=== PATIENT | female | born 1965 | race Caucasian/White ===

== ENCOUNTER → 2017-01-11 | Outpatient (CLI) | payer BC | LOC: MW.CHFP 11:54 | PROVIDERS: ATTEND Physician Assistant | DX: J44.9 Chronic obstructive pulmonary disease, unspecified (principal) | CPT/HCPCS: 36415; 82103; 82104 ==

== ENCOUNTER 2017-04-01 11:13 | Emergency (ER) | payer BC ==
--- NOTE | 2017-04-01 11:35 | EDM.PDOC ---
ED HPI GENERAL MEDICAL PROBLEM - General Chief Complaint: ENT Problem Stated Complaint: SICK Time Seen by Provider: 04/01/17 11:15 - History of Present Illness INITIAL COMMENTS - FREE TEXT/NARRATIVE: HISTORY AND PHYSICAL: History of present illness: Patient 32-year-old white female presents with sore throat she denies fever chills nausea or other complaints. Review of systems: As per history of present illness and below otherwise all systems reviewed and negative. Past medical history: As per history of present illness and as reviewed below otherwise noncontributory. Surgical history: As per history of present illness and as reviewed below otherwise noncontributory. Social history: No reported history of drug or alcohol abuse. Family history: As per history of present illness and as reviewed below otherwise noncontributory. Physical exam: HEENT: Atraumatic, normocephalic, pupils reactive, negative for conjunctival pallor or scleral icterus, mucous membranes moist, throat injected no pustular exudates no peritonsillar fullness ovular deviation no hot potato voice no trismus, neck supple, nontender, trachea midline. Lungs: Clear to auscultation, breath sounds equal bilaterally, chest nontender. Heart: S1S2, regular, negative for clicks, rubs, or JVD. Abdomen: Soft, nondistended, nontender. Negative for masses or hepatosplenomegaly. Negative for costovertebral tenderness. Pelvis: Stable nontender. Genitourinary: Deferred. Rectal: Deferred. Extremities: Atraumatic, negative for cords or calf pain. Neurovascular unremarkable. Neuro: Awake, alert, oriented. Cranial nerves II through XII unremarkable. Cerebellum unremarkable. Motor and sensory unremarkable throughout. Exam nonfocal. Diagnostics: Rapid strep Therapeutics: None Impression: #1 pharyngitis Definitive disposition and diagnosis as appropriate pending reevaluation and review of above. - Related Data Allergies Allergy/AdvReac Type Severity Reaction Status Date / Time aspirin Allergy Nausea and Verified 05/06/16 18:08 Vomiting Influenza Virus Vaccines Allergy Other Verified 05/06/16 18:08 Penicillins Allergy Hives Verified 05/06/16 18:08 shellfish derived Allergy Shortness Verified 05/06/16 18:08 of Breath Home Meds: Home Meds Albuterol [Ventolin HFA] 1 inh INH ASDIRECTED 05/06/16 [History] Cyclobenzaprine [Flexeril] 1 tab PO TID PRN #20 tablet 05/06/16 [Rx] Diazepam [Valium] 1 tab PO BEDTIME PRN #4 tablet 05/06/16 [Rx] Diclofenac Sodium [Voltaren] 1 tab PO TIDMEALS PRN #20 tab.ec 05/06/16 [Rx] Metoprolol Tartrate 50 mg PO ASDIRECTED 05/06/16 [History] Ranitidine HCl [Ranitidine] 150 mg PO ASDIRECTED 05/06/16 [History] Past Medical History HEENT History: Reports: None Cardiovascular History: Reports: Hypertension Respiratory History: Reports: Asthma Gastrointestinal History: Reports: GERD Neurological History: Reports: None Hematologic History: Reports: None Immunologic History: Reports: None Oncologic (Cancer) History: Reports: None Dermatologic History: Reports: None - Past Surgical History HEENT Surgical History: Reports: Other (See Below) Female Surgical History: Reports: Section Social & Family History - Family History Family Medical History: Noncontributory GI: Reports: None : Reports: None OBGYN: Reports: None Musculoskeletal: Reports: None Psychiatric: Reports: None - Tobacco Use Smoking Status *Q: Never Smoker - Recreational Drug Use Recreational Drug Use: No ED ROS GENERAL - Review of Systems Review Of Systems: ROS reveals no pertinent complaints other than HPI. ED EXAM, GENERAL - Physical Exam Exam: See Below (See dictation) Course - Orders/Labs/Meds Orders: Active Orders 24 hr Category Date Time Status CULTURE STREP A CONFIRMATION [RM] Stat Lab 04/01/17 11:19 Results STREP SCRN A RAPID W CULT CONF [RM] Stat Lab 04/01/17 11:19 Results Departure - Departure Time of Disposition: 11:34 Disposition: Home, Self-Care 01 Condition: good Clinical Impression: Pharyngitis - Discharge Information Forms: ED Department Discharge Additional Instructions: The following information is given to patients seen in the emergency department who are being discharged to home. This information is to outline your options for follow-up care. We provide all patients seen in our emergency department with a follow-up referral. The need for follow-up, as well as the timing and circumstances, are variable depending upon the specifics of your emergency department visit. If you don't have a primary care physician on staff, we will provide you with a referral. We always advise you to contact your personal physician following an emergency department visit to inform them of the circumstance of the visit and for follow-up with them and/or the need for any referrals to a consulting specialist. The emergency department will also refer you to a specialist when appropriate. This referral assures that you have the opportunity for followup care with a specialist. All of these measure are taken in an effort to provide you with optimal care, which includes your followup. Under all circumstances we always encourage you to contact your private physician who remains a resource for coordinating your care. When calling for followup care, please make the office aware that this follow-up is from your recent emergency room visit. If for any reason you are refused follow-up, please contact the [facility] emergency department at and asked to speak to the emergency department charge nurse. Continue current medications follow up primary medical doctor one to 2 days return as needed as discussed - My Orders Last 24 Hours: My Active Orders 04/01/17 11:19 CULTURE STREP A CONFIRMATION [RM] Stat STREP SCRN A RAPID W CULT CONF [RM] Stat - Assessment/Plan Last 24 Hours: My Active Orders 04/01/17 11:19 CULTURE STREP A CONFIRMATION [RM] Stat STREP SCRN A RAPID W CULT CONF [RM] Stat
[2017-04-01] MEDS ORDERED: Lidocaine 2% Viscous Solution 100 ML Bottle PO ONE (11:44)
[2017-04-01] MEDS ORDERED: Nystatin Susp 100,000 Unit/ML 5 ML UD Cup PO ONE (11:47)
[2017-04-01] MEDS ORDERED: diphenhydrAMINE 12.5 MG/5 ML Liquid ML (473 ML Bottle) PO ONE (11:47)
[2017-04-01] MEDS ORDERED: NYSTATIN PO SCH ×3 (12:00)
[2017-04-01] MEDS ORDERED: LIDOCAINE 2% PO SCH ×3 (12:00)
[2017-04-01] MEDS ORDERED: DIPHENHYDRAMINE PO SCH ×3 (12:00)
[2017-04-01 12:32] VITALS: BP 156/87
== END 2017-04-01 11:58 | disposition home or self-care (01) ==
LOC: MW.ED 11:13
DX: J02.9 Acute pharyngitis, unspecified (principal); I10 Essential (primary) hypertension; J45.909 Unspecified asthma, uncomplicated; K21.9 Gastro-esophageal reflux disease without esophagitis; Z88.0 Allergy status to penicillin; Z88.8 Allergy status to other drugs, medicaments and biological substances; Z91.013 Allergy to seafood; Z79.899 Other long term (current) drug therapy
CPT/HCPCS: 87081; 87880; 99283; A9270; 99282

== ENCOUNTER 2019-09-12 16:08 | Emergency (ER) | payer BC ==
--- NOTE | 2019-09-12 16:55 | EDM.PDOC ---
ED HPI GENERAL MEDICAL PROBLEM - General Chief Complaint: Respiratory Problem Stated Complaint: PAT LAST VOICE Time Seen by Provider: 09/12/19 16:13 Source of Information: Reports: Patient History Limitations: Reports: No Limitations - History of Present Illness INITIAL COMMENTS - FREE TEXT/NARRATIVE: History of present illness: []Patient has been coughing for 2 weeks and having fevers for the last 6 days. She has lost her voice and states she has chest tightness when she breathes. He shouldn't has a history of asthma and has been using an albuterol inhaler without improvement. Review of systems: As per history of present illness and below otherwise all systems reviewed and negative. Past medical history: As per history of present illness and as reviewed below otherwise noncontributory. Surgical history: As per history of present illness and as reviewed below otherwise noncontributory. Social history: No reported history of drug or alcohol abuse. Family history: As per history of present illness and as reviewed below otherwise noncontributory. Physical exam: General: Well developed, well nourished in NAD HEENT: Atraumatic, normocephalic, pupils reactive, negative for conjunctival pallor or scleral icterus, mucous membranes moist, throat clear, neck supple, nontender, trachea midline. Lungs: Clear to auscultation, breath sounds equal bilaterally, chest nontender. Heart: S1S2, regular, negative for clicks, rubs, or JVD. Abdomen: NABS, Soft, nondistended, nontender. Negative for masses or hepatosplenomegaly. Negative for costovertebral tenderness. Pelvis: Stable nontender. Genitourinary: Deferred. Rectal: Deferred. Extremities: Atraumatic, negative for cords or calf pain. Neurovascular unremarkable. Neuro: Awake, alert, oriented. Cranial nerves II through XII unremarkable. Cerebellum unremarkable. Motor and sensory unremarkable throughout. Exam nonfocal. Skin:warm and dry Diagnostics: Chest x-ray, afebrile, vital signs stable Therapeutics: DuoNeb and prednisone ED Course: Stable Impression: Acute bronchitis Prescriptions: Levaquin, prednisone, albuterol solution Plan: Take meds as directed, follow up with your primary care physician, return to ER if symptoms worsen or change. Definitive disposition and diagnosis as appropriate pending reevaluation and review of above. Chest Pain Score (Numeric/FACES): 6 - Related Data Allergies Allergy/AdvReac Type Severity Reaction Status Date / Time aspirin Allergy Nausea and Verified 04/01/17 12:48 Vomiting caffeine Allergy Cannot Verified 04/01/17 12:48 Remember erythromycin base Allergy Cannot Verified 04/01/17 12:48 Remember Influenza Virus Vaccines Allergy Other Verified 04/01/17 12:48 morphine Allergy Cannot Verified 04/01/17 12:48 Remember oxycodone Allergy Cannot Verified 04/01/17 12:48 Remember Penicillins Allergy Hives Verified 04/01/17 12:48 propoxyphene Allergy Cannot Verified 04/01/17 12:48 Remember shellfish derived Allergy Shortness Verified 04/01/17 12:48 of Breath Home Meds: Home Meds Albuterol [Ventolin HFA] 1 inh INH ASDIRECTED 05/06/16 [History] Cyclobenzaprine [Flexeril] 1 tab PO TID PRN #20 tablet 05/06/16 [Rx] Metoprolol Tartrate 50 mg PO ASDIRECTED 05/06/16 [History] Ranitidine HCl [Ranitidine] 300 mg PO ASDIRECTED 05/06/16 [History] Albuterol [Proventil Neb Soln] 2.5 mg NEB Q4HR PRN #15 neb 09/12/19 [Rx] Calcium Carbonate/Vitamin D3 [Calcium 1,000 + D3 Caplet] 1,000 mcg PO DAILY 06/23 [History] Diclofenac Sodium [Voltaren] 100 mg PO DAILY PRN 09/12/19 [History] Escitalopram [Lexapro] 10 mg PO DAILY 09/12/19 [History] Letrozole 2.5 mg PO DAILY 09/12/19 [History] Magnesium 1,000 mg PO DAILY 09/12/19 [History] Montelukast [Singulair] 10 mg PO DAILY 09/12/19 [History] atorvaSTATin [Lipitor] 10 mg PO BEDTIME 09/12/19 [History] levoFLOXacin [Levaquin] 500 mg PO DAILY #14 tab 09/12/19 [Rx] predniSONE [Prednisone] 20 mg PO DAILY #5 tablet 09/12/19 [Rx] Past Medical History HEENT History: Reports: None Cardiovascular History: Reports: Hypertension Respiratory History: Reports: Asthma Gastrointestinal History: Reports: GERD Neurological History: Reports: None Hematologic History: Reports: None Immunologic History: Reports: None Oncologic (Cancer) History: Reports: None Dermatologic History: Reports: None - Infectious Disease History Infectious Disease History: Reports: Chicken Pox - Past Surgical History HEENT Surgical History: Reports: Other (See Below) Female Surgical History: Reports: Section Social & Family History - Family History Family Medical History: Noncontributory GI: Reports: None : Reports: None OBGYN: Reports: None Musculoskeletal: Reports: None Psychiatric: Reports: None - Caffeine Use Caffeine Use: Reports: None ED ROS GENERAL - Review of Systems Review Of Systems: See Below ED EXAM, GENERAL - Physical Exam Exam: See Below Course - Vital Signs Last Recorded V/S: Last Vital Signs Temp 97.0 F 09/12/19 16:44 Pulse 58 L 09/12/19 16:44 Resp 20 09/12/19 16:44 BP 126/60 09/12/19 16:44 Pulse Ox 95 09/12/19 16:44 - Orders/Labs/Meds Orders: Active Orders 24 hr Category Date Time Status RT Aerosol Therapy [RC] ASDIRECTED Care 09/12/19 16:58 Active Meds: Medications Discontinued Medications Generic Name Dose Route Start Last Admin Trade Name Freq PRN Reason Stop Dose Admin Albuterol/Ipratropium 3 ml 09/12/19 16:58 09/12/19 17:04 Duoneb 3.0-0.5 Mg/3 Ml NEB 09/12/19 16:59 3 ml ONETIME ONE Administration Prednisone 60 mg 09/12/19 16:59 09/12/19 17:10 Prednisone PO 09/12/19 17:00 60 mg ONETIME ONE Administration Departure - Departure Time of Disposition: 17:51 Disposition: Home, Self-Care 01 Condition: Good Clinical Impression: Acute bronchitis Qualifiers: Bronchitis organism: unspecified organism Qualified Code(s): J20.9 - Acute bronchitis, unspecified - Discharge Information *PRESCRIPTION DRUG MONITORING PROGRAM REVIEWED*: Not Applicable *COPY OF PRESCRIPTION DRUG MONITORING REPORT IN PATIENT CANDE: Not Applicable Prescriptions: Albuterol [Proventil Neb Soln] 2.5 mg NEB Q4HR PRN #15 neb PRN Reason: Cough levoFLOXacin [Levaquin] 500 mg PO DAILY #14 tab predniSONE [Prednisone] 20 mg PO DAILY #5 tablet Referrals: PCP,Not In Area [Primary Care Provider] - Forms: ED Department Discharge Additional Instructions: The following information is given to patients seen in the emergency department who are being discharged to home. This information is to outline your options for follow-up care. We provide all patients seen in our emergency department with a follow-up referral. The need for follow-up, as well as the timing and circumstances, are variable depending upon the specifics of your emergency department visit. If you don't have a primary care physician on staff, we will provide you with a referral. We always advise you to contact your personal physician following an emergency department visit to inform them of the circumstance of the visit and for follow-up with them and/or the need for any referrals to a consulting specialist. The emergency department will also refer you to a specialist when appropriate. This referral assures that you have the opportunity for follow-up care with a specialist. All of these measure are taken in an effort to provide you with optimal care, which includes your follow-up. Under all circumstances we always encourage you to contact your private physician who remains a resource for coordinating your care. When calling for follow-up care, please make the office aware that this follow-up is from your recent emergency room visit. If for any reason you are refused follow-up, please contact the [facility] Emergency Department at and asked to speak to the emergency department charge nurse. Take meds as directed, follow up with your primary care physician, return to ER if symptoms worsen or change. [facility] [address] [place] [id number] - My Orders Last 24 Hours: My Active Orders 09/12/19 16:58 RT Aerosol Therapy [RC] ASDIRECTED - Assessment/Plan Last 24 Hours: My Active Orders 09/12/19 16:58 RT Aerosol Therapy [RC] ASDIRECTED
[2019-09-12] MEDS ORDERED: Albuterol/Ipratropium 3.0-0.5 MG/3 ML Neb Soln NEB ONE (16:58)
[2019-09-12] MEDS ORDERED: predniSONE 20 MG Tab PO ONE (16:59)
--- NOTE | 2019-09-12 17:39 | CR ---
INDICATION: pain/sob. with cold for 2 weeks. lost voice and chest tightness since sunday TECHNIQUE: Chest 2 views. COMPARISON: 11/24/16 FINDINGS: Cardiovascular and mediastinum: Heart size and vasculature are normal in caliber and appearance. Mediastinum is within normal limits. Lungs and pleural spaces: Lungs are clear. No sign of infiltrate or mass. No sign of pleural effusion. No pneumothorax. Bones and soft tissues: No significant findings. IMPRESSION: Unremarkable chest. Dictated by: Geo Morales MD @ 09/12/2019 17:38:37 (Electronically Signed)
[2019-09-12 18:06] VITALS: BP 132/67; PULSE 62
== END 2019-09-12 18:07 | disposition home or self-care (01) ==
LOC: MW.ED 16:08
DX: J20.9 Acute bronchitis, unspecified (principal); I10 Essential (primary) hypertension; J45.909 Unspecified asthma, uncomplicated; Z79.52 Long term (current) use of systemic steroids; Z79.899 Other long term (current) drug therapy; Z88.0 Allergy status to penicillin; Z88.1 Allergy status to other antibiotic agents; Z88.5 Allergy status to narcotic agent; Z88.6 Allergy status to analgesic agent; Z88.7 Allergy status to serum and vaccine; Z91.018 Allergy to other foods; Z91.013 Allergy to seafood
CPT/HCPCS: 71046; 94640; 99283; A9270; J7620-GY

== ENCOUNTER 2019-11-15 12:20 | Emergency (ER) | payer BC ==
--- NOTE | 2019-11-15 13:11 | EDM.PDOC ---
ED HPI GENERAL MEDICAL PROBLEM - General Chief Complaint: Respiratory Problem Stated Complaint: TROUBLE BREATHING Time Seen by Provider: 11/15/19 13:10 Source of Information: Reports: Patient History Limitations: Reports: No Limitations - History of Present Illness INITIAL COMMENTS - FREE TEXT/NARRATIVE: HISTORY AND PHYSICAL: History of present illness: Patient is a 54-year-old female presents to the ED with complaint of cough and shortness of breath x 1 week. Patient reports history of asthma, has been using inhalers and nebulizer to help with SOB. She states when she lies down she has coughing fits. She is starting to have a burning sensation in her chest secondary to the cough. She reports subjective fevers. Denies nausea, vomiting, abdominal pain. Review of systems: As per history of present illness and below otherwise all systems reviewed and negative. Past medical history: As per history of present illness and as reviewed below otherwise noncontributory. Surgical history: As per history of present illness and as reviewed below otherwise noncontributory. Social history: No reported history of drug or alcohol abuse. Family history: As per history of present illness and as reviewed below otherwise noncontributory. Physical exam: General: Patient sitting comfortably in no acute distress and nontoxic appearing HEENT: Atraumatic, normocephalic, pupils reactive, negative for conjunctival pallor or scleral icterus, mucous membranes moist, throat clear, neck supple, nontender, trachea midline. No meningeal signs. Lungs: Clear to auscultation, breath sounds equal bilaterally, chest nontender. Heart: S1S2, regular, negative for clicks, rubs, or overt murmur. Abdomen: Soft, nondistended, nontender. Negative for masses or hepatosplenomegaly. Negative for costovertebral tenderness. No rigidity, rebound , guarding. Pelvis: Stable nontender. Genitourinary: Deferred. Rectal: Deferred. Extremities: Atraumatic, negative for cords or calf pain. Neurovascular unremarkable. Neuro: Awake, alert, oriented. Cranial nerves II through XII unremarkable. Cerebellum unremarkable. Motor and sensory unremarkable throughout. Exam nonfocal. Notes: Diagnostics: CXR, CBC, CMP declined influenza Therapeutics: none Prescriptions: Azithromycin Medrol dosepak Impression: Acute bronchitis Plan: Take medications as instructed Continue inhaler and nebulizer as needed Follow up with primary care provider Return to ED as needed as discussed Definitive disposition and diagnosis as appropriate pending reevaluation and review of above. generalized Pain Score (Numeric/FACES): 7 - Related Data Allergies Allergy/AdvReac Type Severity Reaction Status Date / Time aspirin Allergy Nausea and Verified 11/15/19 12:34 Vomiting caffeine Allergy Cannot Verified 11/15/19 12:34 Remember erythromycin base Allergy Cannot Verified 11/15/19 12:34 Remember Influenza Virus Vaccines Allergy Other Verified 11/15/19 12:34 Latex, Natural Rubber Allergy Other Verified 11/15/19 12:34 morphine Allergy Cannot Verified 11/15/19 12:34 Remember oxycodone Allergy Cannot Verified 11/15/19 12:34 Remember Penicillins Allergy Hives Verified 11/15/19 12:34 propoxyphene Allergy Cannot Verified 11/15/19 12:34 Remember shellfish derived Allergy Shortness Verified 11/15/19 12:34 of Breath Home Meds: Home Meds Albuterol [Ventolin HFA] 1 inh INH ASDIRECTED 05/06/16 [History] Metoprolol Tartrate 50 mg PO ASDIRECTED 05/06/16 [History] Ranitidine HCl [Ranitidine] 300 mg PO ASDIRECTED 05/06/16 [History] Albuterol [Proventil Neb Soln] 2.5 mg NEB Q4HR PRN #15 neb 09/12/19 [Rx] Calcium Carbonate/Vitamin D3 [Calcium 1,000 + D3 Caplet] 1,000 mcg PO DAILY 06/23 [History] Diclofenac Sodium [Voltaren] 100 mg PO DAILY PRN 09/12/19 [History] Escitalopram [Lexapro] 10 mg PO DAILY 09/12/19 [History] Letrozole 2.5 mg PO DAILY 09/12/19 [History] Magnesium 1,000 mg PO DAILY 09/12/19 [History] Montelukast [Singulair] 10 mg PO DAILY 09/12/19 [History] atorvaSTATin [Lipitor] 10 mg PO BEDTIME 09/12/19 [History] Azithromycin [Zithromax] 250 mg PO ASDIRECTED #1 dosepk 11/15/19 [Rx] Fluticasone Furoate [Arnuity Ellipta] 2 puff IH ASDIRECTED 11/15/19 [History] methylPREDNISolone [Medrol] 4 mg PO ASDIRECTED #1 tab.ds.pk 11/15/19 [Rx] Past Medical History HEENT History: Reports: None Cardiovascular History: Reports: High Cholesterol, Hypertension Respiratory History: Reports: Asthma Gastrointestinal History: Reports: GERD Neurological History: Reports: None Hematologic History: Reports: None Immunologic History: Reports: None Oncologic (Cancer) History: Reports: None Dermatologic History: Reports: None - Infectious Disease History Infectious Disease History: Reports: Chicken Pox - Past Surgical History HEENT Surgical History: Reports: Other (See Below) Female Surgical History: Reports: Breast Biopsy, Section, Hysterectomy, Salpingo-Oophorectomy Oncologic Surgical History: Reports: Biopsy of Breast, Lumpectomy Social & Family History - Family History Family Medical History: Noncontributory GI: Reports: None : Reports: None OBGYN: Reports: None Musculoskeletal: Reports: None Psychiatric: Reports: None - Tobacco Use Smoking Status *Q: Never Smoker - Caffeine Use Caffeine Use: Reports: None - Recreational Drug Use Recreational Drug Use: No ED ROS GENERAL - Review of Systems Review Of Systems: Comprehensive ROS is negative, except as noted in HPI. ED EXAM, GENERAL - Physical Exam Exam: See Below (see dictation) Course - Vital Signs Last Recorded V/S: Last Vital Signs Temp 97.1 F 11/15/19 12:31 Pulse 75 11/15/19 12:31 Resp 18 11/15/19 12:31 BP 150/73 H 11/15/19 12:31 Pulse Ox 94 L 11/15/19 12:31 - Orders/Labs/Meds Labs: Laboratory Tests 11/15/19 11/15/19 Range/Units 12:50 12:50 WBC 10.70 (4.0-11.0) K/uL RBC 4.24 L (4.30-5.90) M/uL Hgb 12.6 (12.0-16.0) g/dL Hct 37.5 (36.0-46.0) % MCV 88.4 (80.0-98.0) fL MCH 29.7 (27.0-32.0) pg MCHC 33.6 (31.0-37.0) g/dL RDW Std Deviation 38.3 (28.0-62.0) fl RDW Coeff of Vani 12 (11.0-15.0) % Plt Count 285 (150-400) K/uL MPV 10.10 (7.40-12.00) fL Neut % (Auto) 73.0 (48.0-80.0) % Lymph % (Auto) 19.0 (16.0-40.0) % Tama % (Auto) 4.7 (0.0-15.0) % Eos % (Auto) 3.2 (0.0-7.0) % Baso % (Auto) 0.1 (0.0-1.5) % Neut # (Auto) 7.8 H (1.4-5.7) K/uL Lymph # (Auto) 2.0 (0.6-2.4) K/uL Tama # (Auto) 0.5 (0.0-0.8) K/uL Eos # (Auto) 0.3 (0.0-0.7) K/uL Baso # (Auto) 0.0 (0.0-0.1) K/uL Sodium 143 (136-145) mmol/L Potassium 4.1 (3.5-5.1) mmol/L Chloride 103 (98-107) mmol/L Carbon Dioxide 29.0 (21.0-32.0) mmol/L BUN 13 (7.0-18.0) mg/dL Creatinine 1.1 H (0.6-1.0) mg/dL Est Cr Clr Drug Dosing 54.29 mL/min Estimated GFR (MDRD) 52.0 ml/min Glucose 164 H (74-106) mg/dL Calcium 9.4 (8.5-10.1) mg/dL Total Bilirubin 0.2 (0.2-1.0) mg/dL AST 18 (15-37) IU/L ALT 25 (14-63) IU/L Alkaline Phosphatase 148 H (46-116) U/L Total Protein 7.1 (6.4-8.2) g/dL Albumin 3.4 (3.4-5.0) g/dL Globulin 3.7 (2.6-4.0) g/dL Albumin/Globulin Ratio 0.9 (0.9-1.6) Departure - Departure Time of Disposition: 13:27 Disposition: Home, Self-Care 01 Condition: Good Clinical Impression: Acute bronchitis Qualifiers: Bronchitis organism: unspecified organism Qualified Code(s): J20.9 - Acute bronchitis, unspecified - Discharge Information Prescriptions: Azithromycin [Zithromax] 250 mg PO ASDIRECTED #1 dosepk methylPREDNISolone [Medrol] 4 mg PO ASDIRECTED #1 tab.ds.pk Referrals: Ewa Urena NP [Primary Care Provider] - Forms: ED Department Discharge Additional Instructions: The following information is given to patients seen in the emergency department who are being discharged to home. This information is to outline your options for follow-up care. We provide all patients seen in our emergency department with a follow-up referral. The need for follow-up, as well as the timing and circumstances, are variable depending upon the specifics of your emergency department visit. If you don't have a primary care physician on staff, we will provide you with a referral. We always advise you to contact your personal physician following an emergency department visit to inform them of the circumstance of the visit and for follow-up with them and/or the need for any referrals to a consulting specialist. The emergency department will also refer you to a specialist when appropriate. This referral assures that you have the opportunity for follow-up care with a specialist. All of these measure are taken in an effort to provide you with optimal care, which includes your follow-up. Under all circumstances we always encourage you to contact your private physician who remains a resource for coordinating your care. When calling for follow-up care, please make the office aware that this follow-up is from your recent emergency room visit. If for any reason you are refused follow-up, please contact the [facility] Emergency Department at and asked to speak to the emergency department charge nurse. [facility] [address] [place] [address] [id number] [address] [address] Take medications as instructed Continue inhaler and nebulizer as needed Follow up with primary care provider Return to ED as needed as discussed Sepsis Event Note - Evaluation Sepsis Screening Result: No Definite Risk - Focused Exam Vital Signs: Vital Signs Temp Pulse Resp BP Pulse Ox 11/15/19 12:31 97.1 F 75 18 150/73 H 94 L Date Exam was Performed: 11/15/19 Time Exam was Performed: 13:25
--- NOTE | 2019-11-15 13:18 | CR ---
Chest: 2 views of the chest were obtained. Comparison: Prior chest x-ray of 09/19/19. Heart size and mediastinum are normal. Lungs are clear. Slight degenerative change is scattered within the spine. Surgical clips are seen within the upper abdomen. Impression: 1. Findings as noted above. 2. Nothing acute is appreciated on 2 view chest x-ray. Diagnostic code #2 This report was dictated in [place] Standard Time
[2019-11-15 13:21] LABS: POTASSIUM,K 4.1 mmol/L (3.5-5.1)
[2019-11-15 17:57] VITALS: BP 137/70; PULSE 65
== END 2019-11-15 13:45 | disposition home or self-care (01) ==
LOC: MW.ED 12:20
DX: J20.9 Acute bronchitis, unspecified (principal); I10 Essential (primary) hypertension; Z88.5 Allergy status to narcotic agent; Z88.1 Allergy status to other antibiotic agents; Z91.040 Latex allergy status; Z88.0 Allergy status to penicillin; Z91.013 Allergy to seafood; Z79.899 Other long term (current) drug therapy
CPT/HCPCS: 36415; 71046; 71046-26; 80053; 85025; 99283; 99283-25

== ENCOUNTER 2020-01-15 11:32 | Emergency (ER) | payer BC ==
[2020-01-15 11:56] VITALS: BP 149/83; PULSE 83
--- NOTE | 2020-01-15 12:05 | EDM.PDOC ---
ED HPI GENERAL MEDICAL PROBLEM - General Chief Complaint: Fever Stated Complaint: FEVER Time Seen by Provider: 01/15/20 11:59 Source of Information: Reports: Patient History Limitations: Reports: No Limitations - History of Present Illness INITIAL COMMENTS - FREE TEXT/NARRATIVE: HISTORY AND PHYSICAL: History of present illness: Patient is a 54-year-old female with history of asthma presents to the ED for flu like symptoms. Patient states she has had body aches, fevers, cough, abdominal pain since last night. She denies chest pain, shortness of breath, vomiting, diarrhea. She states she has not needed to use her PRN inhalers. Review of systems: As per history of present illness and below otherwise all systems reviewed and negative. Past medical history: As per history of present illness and as reviewed below otherwise noncontributory. Surgical history: As per history of present illness and as reviewed below otherwise noncontributory. Social history: No reported history of drug or alcohol abuse. Family history: As per history of present illness and as reviewed below otherwise noncontributory. Physical exam: General: Patient sitting comfortably in no acute distress and nontoxic appearing HEENT: Atraumatic, normocephalic, pupils reactive, negative for conjunctival pallor or scleral icterus, mucous membranes moist, throat clear, neck supple, nontender, trachea midline. No meningeal signs. Lungs: Clear to auscultation, breath sounds equal bilaterally, chest nontender. Heart: S1S2, regular, negative for clicks, rubs, or overt murmur. Abdomen: Soft, nondistended, nontender. Negative for masses or hepatosplenomegaly. Negative for costovertebral tenderness. No rigidity, rebound , guarding. Pelvis: Stable nontender. Genitourinary: Deferred. Rectal: Deferred. Extremities: Atraumatic, negative for cords or calf pain. Neurovascular unremarkable. Neuro: Awake, alert, oriented. Cranial nerves II through XII unremarkable. Cerebellum unremarkable. Motor and sensory unremarkable throughout. Exam nonfocal. Notes: Diagnostics: Influenza, CXR Therapeutics: none Prescriptions: none Impression: Viral URI Plan: 1. Drink plenty of fluids and alternate tylenol and motrin as discussed. 2. Follow up with primary care provider 3. Return to ED as needed as discussed Definitive disposition and diagnosis as appropriate pending reevaluation and review of above. body aches Pain Score (Numeric/FACES): 8 abdomen Pain Score (Numeric/FACES): 8 - Related Data Allergies Allergy/AdvReac Type Severity Reaction Status Date / Time anastrozole Allergy Hives Verified 01/15/20 11:48 aspirin Allergy Nausea and Verified 11/15/19 12:34 Vomiting caffeine Allergy Cannot Verified 11/15/19 12:34 Remember erythromycin base Allergy Cannot Verified 11/15/19 12:34 Remember Influenza Virus Vaccines Allergy Other Verified 11/15/19 12:34 Latex, Natural Rubber Allergy Other Verified 11/15/19 12:34 morphine Allergy Cannot Verified 11/15/19 12:34 Remember oxycodone Allergy Cannot Verified 11/15/19 12:34 Remember Penicillins Allergy Hives Verified 11/15/19 12:34 propoxyphene Allergy Cannot Verified 11/15/19 12:34 Remember shellfish derived Allergy Shortness Verified 11/15/19 12:34 of Breath Home Meds: Home Meds Albuterol [Ventolin HFA] 1 inh INH ASDIRECTED 05/06/16 [History] Metoprolol Tartrate 50 mg PO ASDIRECTED 05/06/16 [History] Ranitidine HCl [Ranitidine] 300 mg PO ASDIRECTED 05/06/16 [History] Albuterol [Proventil Neb Soln] 2.5 mg NEB Q4HR PRN #15 neb 09/12/19 [Rx] Calcium Carbonate/Vitamin D3 [Calcium 1,000 + D3 Caplet] 1,000 mcg PO DAILY 06/23 [History] Diclofenac Sodium [Voltaren] 100 mg PO DAILY PRN 09/12/19 [History] Escitalopram [Lexapro] 10 mg PO DAILY 09/12/19 [History] Letrozole 2.5 mg PO DAILY 09/12/19 [History] Magnesium 1,000 mg PO DAILY 09/12/19 [History] Montelukast [Singulair] 10 mg PO DAILY 09/12/19 [History] atorvaSTATin [Lipitor] 10 mg PO BEDTIME 09/12/19 [History] Azithromycin [Zithromax] 250 mg PO ASDIRECTED #1 dosepk 11/15/19 [Rx] Fluconazole [Diflucan] 150 mg PO ONETIME #1 tab 11/15/19 [Rx] Fluticasone Furoate [Arnuity Ellipta] 2 puff IH ASDIRECTED 11/15/19 [History] methylPREDNISolone [Medrol] 4 mg PO ASDIRECTED #1 tab.ds.pk 11/15/19 [Rx] Past Medical History HEENT History: Reports: None Cardiovascular History: Reports: High Cholesterol, Hypertension Respiratory History: Reports: Asthma Gastrointestinal History: Reports: GERD Neurological History: Reports: None Hematologic History: Reports: None Immunologic History: Reports: None Oncologic (Cancer) History: Reports: None Dermatologic History: Reports: None - Infectious Disease History Infectious Disease History: Reports: Chicken Pox - Past Surgical History HEENT Surgical History: Reports: Other (See Below) Female Surgical History: Reports: Breast Biopsy, Section, Hysterectomy, Salpingo-Oophorectomy Oncologic Surgical History: Reports: Biopsy of Breast, Lumpectomy Social & Family History - Family History Family Medical History: Noncontributory GI: Reports: None : Reports: None OBGYN: Reports: None Musculoskeletal: Reports: None Psychiatric: Reports: None - Caffeine Use Caffeine Use: Reports: None ED ROS GENERAL - Review of Systems Review Of Systems: Comprehensive ROS is negative, except as noted in HPI. ED EXAM, GENERAL - Physical Exam Exam: See Below (see dictation) Course - Vital Signs Last Recorded V/S: Last Vital Signs Temp 97.8 F 01/15/20 11:50 Pulse 83 01/15/20 11:50 Resp 20 01/15/20 11:50 BP 149/83 H 01/15/20 11:50 Pulse Ox 93 L 01/15/20 11:50 - Orders/Labs/Meds Orders: Active Orders 24 hr Category Date Time Status Isolation [COMM] Routine Oth 01/15/20 11:51 Active Departure - Departure Time of Disposition: 13:21 Disposition: Home, Self-Care 01 Condition: Good Clinical Impression: Viral URI - Discharge Information Referrals: PCP,Not In Area [Primary Care Provider] - Forms: ED Department Discharge Additional Instructions: The following information is given to patients seen in the emergency department who are being discharged to home. This information is to outline your options for follow-up care. We provide all patients seen in our emergency department with a follow-up referral. The need for follow-up, as well as the timing and circumstances, are variable depending upon the specifics of your emergency department visit. If you don't have a primary care physician on staff, we will provide you with a referral. We always advise you to contact your personal physician following an emergency department visit to inform them of the circumstance of the visit and for follow-up with them and/or the need for any referrals to a consulting specialist. The emergency department will also refer you to a specialist when appropriate. This referral assures that you have the opportunity for follow-up care with a specialist. All of these measure are taken in an effort to provide you with optimal care, which includes your follow-up. Under all circumstances we always encourage you to contact your private physician who remains a resource for coordinating your care. When calling for follow-up care, please make the office aware that this follow-up is from your recent emergency room visit. If for any reason you are refused follow-up, please contact the [facility] Emergency Department at and asked to speak to the emergency department charge nurse. [facility] [address] [place] [address] [id number] [facility] [address] [place] [address] 1. Drink plenty of fluids and alternate tylenol and motrin as discussed. 2. Follow up with primary care provider 3. Return to ED as needed as discussed Sepsis Event Note - Evaluation Sepsis Screening Result: No Definite Risk - Focused Exam Vital Signs: Vital Signs Temp Pulse Resp BP Pulse Ox 01/15/20 11:50 97.8 F 83 20 149/83 H 93 L Date Exam was Performed: 01/15/20 Time Exam was Performed: 13:22 - My Orders Last 24 Hours: My Active Orders 01/15/20 11:51 Isolation [COMM] Routine - Assessment/Plan Last 24 Hours: My Active Orders 01/15/20 11:51 Isolation [COMM] Routine
--- NOTE | 2020-01-15 13:15 | CR ---
Chest: 2 views of the chest were obtained. Comparison: Prior chest x-ray of 12/17/19. Heart size at the upper limits of normal. Lungs are clear with no acute parenchymal change. Mild degenerative spurring is noted within the spine. Impression: 1. Heart size at the upper limits of normal. Nothing acute is appreciated on 2 view chest x-ray. Diagnostic code #2 This report was dictated in MDT
== END 2020-01-15 13:37 | disposition home or self-care (01) ==
LOC: MW.ED 11:32
DX: J06.9 Acute upper respiratory infection, unspecified (principal); E78.00 Pure hypercholesterolemia, unspecified; I10 Essential (primary) hypertension; J45.909 Unspecified asthma, uncomplicated; K21.9 Gastro-esophageal reflux disease without esophagitis; Z88.5 Allergy status to narcotic agent; Z88.1 Allergy status to other antibiotic agents; Z88.0 Allergy status to penicillin; Z91.013 Allergy to seafood; Z79.899 Other long term (current) drug therapy
CPT/HCPCS: 71046; 71046-26; 87804; 99282; 99285-25

== ENCOUNTER 2020-01-16 02:14 | Inpatient (IN) | payer BC, OTHER ==
[2020-01-16] MEDS ORDERED: methylPREDNISolone Sodium Succinate 125 MG/2 ML SDV ONE (02:26)
[2020-01-16] MEDS ORDERED: methylPREDNISolone Sodium Succinate 125 MG/2 ML SDV IVPUSH ONE (02:30)
--- NOTE | 2020-01-16 02:35 | EDM.PDOC ---
ED HPI GENERAL MEDICAL PROBLEM - General Chief Complaint: Respiratory Problem Stated Complaint: SOB Time Seen by Provider: 01/16/20 02:20 Source of Information: Reports: Patient History Limitations: Reports: No Limitations - History of Present Illness INITIAL COMMENTS - FREE TEXT/NARRATIVE: 54-year-old female past medical history of wheezing presenting with shortness of breath. The patient woke up yesterday morning with a fever and very short of breath. She was seen in the emergency department yesterday and diagnosed with the flu and sent home to recuperate. However her breathing is gotten worse tonight. She presents after having 2 nebulizer treatments at home and still being wheezy and short of breath. Patient denies any recent trauma. No recent sick contacts. No recent trips or travels. No history of DVT or PE. No confusion weakness or numbness. No changes in bowel or bladder habits. - Related Data Allergies Allergy/AdvReac Type Severity Reaction Status Date / Time anastrozole Allergy Hives Verified 01/16/20 02:31 aspirin Allergy Nausea and Verified 01/16/20 02:31 Vomiting caffeine Allergy Cannot Verified 01/16/20 02:31 Remember erythromycin base Allergy Cannot Verified 01/16/20 02:31 Remember Influenza Virus Vaccines Allergy Other Verified 01/16/20 02:31 Latex, Natural Rubber Allergy Other Verified 01/16/20 02:31 morphine Allergy Cannot Verified 01/16/20 02:31 Remember oxycodone Allergy Cannot Verified 01/16/20 02:31 Remember Penicillins Allergy Hives Verified 01/16/20 02:31 propoxyphene Allergy Cannot Verified 01/16/20 02:31 Remember shellfish derived Allergy Shortness Verified 11/15/19 12:34 of Breath Home Meds: Home Meds Albuterol [Ventolin HFA] 1 inh INH ASDIRECTED 05/06/16 [History] Metoprolol Tartrate 50 mg PO ASDIRECTED 05/06/16 [History] Ranitidine HCl [Ranitidine] 300 mg PO ASDIRECTED 05/06/16 [History] Albuterol [Proventil Neb Soln] 2.5 mg NEB Q4HR PRN #15 neb 09/12/19 [Rx] Calcium Carbonate/Vitamin D3 [Calcium 1,000 + D3 Caplet] 1,000 mcg PO DAILY 06/23 [History] Diclofenac Sodium [Voltaren] 100 mg PO DAILY PRN 11/08/19 [History] Escitalopram [Lexapro] 10 mg PO DAILY 09/12/19 [History] Letrozole 2.5 mg PO DAILY 09/12/19 [History] Magnesium 1,000 mg PO DAILY 09/12/19 [History] Montelukast [Singulair] 10 mg PO DAILY 09/12/19 [History] atorvaSTATin [Lipitor] 10 mg PO BEDTIME 09/12/19 [History] Azithromycin [Zithromax] 250 mg PO ASDIRECTED #1 dosepk 11/15/19 [Rx] Fluconazole [Diflucan] 150 mg PO ONETIME #1 tab 11/15/19 [Rx] Fluticasone Furoate [Arnuity Ellipta] 2 puff IH ASDIRECTED 11/15/19 [History] methylPREDNISolone [Medrol] 4 mg PO ASDIRECTED #1 tab.ds.pk 11/15/19 [Rx] Past Medical History HEENT History: Reports: None Cardiovascular History: Reports: High Cholesterol, Hypertension Respiratory History: Reports: Asthma Gastrointestinal History: Reports: GERD Neurological History: Reports: None Hematologic History: Reports: None Immunologic History: Reports: None Oncologic (Cancer) History: Reports: None Dermatologic History: Reports: None - Infectious Disease History Infectious Disease History: Reports: Chicken Pox - Past Surgical History HEENT Surgical History: Reports: Other (See Below) Female Surgical History: Reports: Breast Biopsy, Section, Hysterectomy, Salpingo-Oophorectomy Oncologic Surgical History: Reports: Biopsy of Breast, Lumpectomy Social & Family History - Family History Family Medical History: Noncontributory GI: Reports: None : Reports: None OBGYN: Reports: None Musculoskeletal: Reports: None Psychiatric: Reports: None - Caffeine Use Caffeine Use: Reports: None ED ROS GENERAL - Review of Systems Review Of Systems: Comprehensive ROS is negative, except as noted in HPI. ED EXAM, GENERAL - Physical Exam Exam: See Below Free Text/Narrative:: General: Moderate distress. Tachypneic Heent: Examination revealed mild pallor, no icterus, no lymphadenopathy. The patient has normal posterior pharynx, moist mucous membranes. Neck: Supple. No JVD. No rigidity. Heart: Normal rate. Reg rhythm. No murmurs appreciated. Lungs: Scattered rhonchi and wheezing, moderate. No focal findings. Patient is tachypneic. Abdomen: Obese. Nontender, non-distended, soft, no CVA tenderness. Neuro: Pt is moving all four extremities. EOMI. PERRL. Normal speech. Skin: Exposed areas appeared normally perfused, warm, normal color with no meaningful rashes or lesions. Extremities: Peripheral examination revealed no pedal edema. Peripheral pulses were 2+. Course - Vital Signs Text/Narrative:: Patient arrives febrile, tachypneic, hypoxic, hypertensive. After breathing treatments no longer hypertensive. Tachycardia resolved. Ongoing hypoxia. Chest x-ray seems to be cephalized more than 18 hours earlier. Patient now 104. Negative fever. No focal pneumonia on x-ray however PNA also certainly possibility. Without a focal pneumonia however source of fever is unknown at this time. Broad-spectrum coverage. Lactic added. Blood cultures added. Admission. Last Recorded V/S: Last Vital Signs Temp 104.7 F H 01/16/20 03:16 Pulse 99 01/16/20 02:50 Resp 24 H 01/16/20 02:50 BP 139/74 01/16/20 02:50 Pulse Ox 84 L 01/16/20 03:25 - Orders/Labs/Meds Orders: Active Orders 24 hr Category Date Time Status Admission Status [Patient Status] [ADT] Stat ADT 01/16/20 03:34 Active RT Aerosol Therapy [RC] ASDIRECTED Care 01/16/20 02:39 Active RT Aerosol Therapy [RC] ASDIRECTED Care 01/16/20 02:40 Active CULTURE BLOOD [BC] Stat Lab 01/16/20 03:20 Received CULTURE BLOOD [BC] Stat Lab 01/16/20 03:33 Results UA W/REGINA RFLX IF INDICATED [URIN] Stat Lab 01/16/20 03:24 Ordered Cefepime [Maxipime in D5W 2 GM/50 ML] 2 gm Med 01/16/20 03:28 Active Premix Bag 1 bag IV ONETIME Vancomycin 1.5 gm Med 01/16/20 03:45 Ordered Sodium Chloride 0.9% [Normal Saline] 500 ml IV Q24H Blood Culture x2 Reflex Set [OM.PC] Stat Oth 01/16/20 03:18 Ordered Medication Orders Cefepime HCl 2 gm/ Premix 50 mls @ 100 mls/hr IV ONETIME ONE Stop: 01/16/20 03:57 Vancomycin HCl 1.5 gm/ Sodium (Chloride) 500 mls @ 333 mls/hr IV Q24H FRANK Labs: Laboratory Tests 01/16/20 01/16/20 01/16/20 Range/Units 02:45 02:45 02:45 WBC 10.37 (4.0-11.0) K/uL RBC 4.24 L (4.30-5.90) M/uL Hgb 12.7 (12.0-16.0) g/dL Hct 39.4 (36.0-46.0) % MCV 92.9 (80.0-98.0) fL MCH 30.0 (27.0-32.0) pg MCHC 32.2 (31.0-37.0) g/dL RDW Std Deviation 43.6 (28.0-62.0) fl RDW Coeff of Vani 13 (11.0-15.0) % Plt Count 199 (150-400) K/uL MPV 10.30 (7.40-12.00) fL Neut % (Auto) 83.6 H (48.0-80.0) % Lymph % (Auto) 13.1 L (16.0-40.0) % Hanson % (Auto) 2.1 (0.0-15.0) % Eos % (Auto) 1.0 (0.0-7.0) % Baso % (Auto) 0.2 (0.0-1.5) % Neut # (Auto) 8.7 H (1.4-5.7) K/uL Lymph # (Auto) 1.4 (0.6-2.4) K/uL Hanson # (Auto) 0.2 (0.0-0.8) K/uL Eos # (Auto) 0.1 (0.0-0.7) K/uL Baso # (Auto) 0.0 (0.0-0.1) K/uL Nucleated RBC % 0.0 /100WBC Nucleated RBCs # 0 K/uL VBG pH 7.42 H (7.31-7.41) VBG pCO2 47 H (35-45) mmHG VBG pO2 33 (30-40) mmHG VBG HCO3 30 (22-30) mEq/L VBG Total CO2 28 L (41-51) mmol/L VBG Base Excess 4.7 H (-3.0-3.0) Lactate (0.20-2.00) mmol/L Sodium 140 (136-145) mmol/L Potassium 3.5 (3.5-5.1) mmol/L Chloride 102 (98-107) mmol/L Carbon Dioxide 28.8 (21.0-32.0) mmol/L BUN 9 (7.0-18.0) mg/dL Creatinine 1.2 H (0.6-1.0) mg/dL Est Cr Clr Drug Dosing TNP Estimated GFR (MDRD) 47.0 ml/min Glucose 178 H (74-106) mg/dL Calcium 8.8 (8.5-10.1) mg/dL Total Bilirubin 0.6 (0.2-1.0) mg/dL AST 23 (15-37) IU/L ALT 31 (14-63) IU/L Alkaline Phosphatase 144 H (46-116) U/L B-Natriuretic Peptide (<100) PG/ML Total Protein 6.8 (6.4-8.2) g/dL Albumin 3.2 L (3.4-5.0) g/dL Globulin 3.6 (2.6-4.0) g/dL Albumin/Globulin Ratio 0.9 (0.9-1.6) 01/16/20 01/16/20 Range/Units 02:45 03:33 WBC (4.0-11.0) K/uL RBC (4.30-5.90) M/uL Hgb (12.0-16.0) g/dL Hct (36.0-46.0) % MCV (80.0-98.0) fL MCH (27.0-32.0) pg MCHC (31.0-37.0) g/dL RDW Std Deviation (28.0-62.0) fl RDW Coeff of Vani (11.0-15.0) % Plt Count (150-400) K/uL MPV (7.40-12.00) fL Neut % (Auto) (48.0-80.0) % Lymph % (Auto) (16.0-40.0) % Hanson % (Auto) (0.0-15.0) % Eos % (Auto) (0.0-7.0) % Baso % (Auto) (0.0-1.5) % Neut # (Auto) (1.4-5.7) K/uL Lymph # (Auto) (0.6-2.4) K/uL Hanson # (Auto) (0.0-0.8) K/uL Eos # (Auto) (0.0-0.7) K/uL Baso # (Auto) (0.0-0.1) K/uL Nucleated RBC % /100WBC Nucleated RBCs # K/uL VBG pH (7.31-7.41) VBG pCO2 (35-45) mmHG VBG pO2 (30-40) mmHG VBG HCO3 (22-30) mEq/L VBG Total CO2 (41-51) mmol/L VBG Base Excess (-3.0-3.0) Lactate 2.2 H* (0.20-2.00) mmol/L Sodium (136-145) mmol/L Potassium (3.5-5.1) mmol/L Chloride (98-107) mmol/L Carbon Dioxide (21.0-32.0) mmol/L BUN (7.0-18.0) mg/dL Creatinine (0.6-1.0) mg/dL Est Cr Clr Drug Dosing Estimated GFR (MDRD) ml/min Glucose (74-106) mg/dL Calcium (8.5-10.1) mg/dL Total Bilirubin (0.2-1.0) mg/dL AST (15-37) IU/L ALT (14-63) IU/L Alkaline Phosphatase (46-116) U/L B-Natriuretic Peptide 53 (<100) PG/ML Total Protein (6.4-8.2) g/dL Albumin (3.4-5.0) g/dL Globulin (2.6-4.0) g/dL Albumin/Globulin Ratio (0.9-1.6) Meds: Medications Generic Name Dose Route Start Last Admin Trade Name Freq PRN Reason Stop Dose Admin Cefepime HCl 2 gm/ Premix 50 mls @ 100 mls/hr 01/16/20 03:28 IV 01/16/20 03:57 ONETIME ONE Vancomycin HCl 1.5 gm/ Sodium 500 mls @ 333 mls/hr 01/16/20 03:45 Chloride IV Q24H FRANK Discontinued Medications Generic Name Dose Route Start Last Admin Trade Name Partha PRN Reason Stop Dose Admin Acetaminophen 1,000 mg 01/16/20 03:36 Tylenol Extra Strength PO 01/16/20 03:37 ONETIME ONE Albuterol/Ipratropium 3 ml 01/16/20 02:39 01/16/20 02:46 Duoneb 3.0-0.5 Mg/3 Ml NEB 01/16/20 02:40 3 ml ONETIME ONE Administration Albuterol/Ipratropium 3 ml 01/16/20 02:39 01/16/20 02:15 Duoneb 3.0-0.5 Mg/3 Ml NEB 01/16/20 02:40 3 ml ONETIME ONE Administration Methylprednisolone Sodium Succinate 125 mg 01/16/20 02:30 01/16/20 02:34 Solu-Medrol IVPUSH 01/16/20 02:31 125 mg ONETIME ONE Administration Methylprednisolone Sodium Succinate Confirm 01/16/20 02:26 01/16/20 02:39 Solu-Medrol Administered 01/16/20 02:27 Not Given Dose 125 mg .ROUTE .STK-MED ONE Departure - Departure Time of Disposition: 03:30 Disposition: Home, Self-Care 01 Condition: Fair Clinical Impression: Pneumonia - Discharge Information Referrals: PCP,None [Primary Care Provider] - Forms: ED Department Discharge Sepsis Event Note - Focused Exam Vital Signs: Vital Signs Temp Temp Pulse Resp BP Pulse Ox 01/16/20 03:25 84 L 01/16/20 03:16 104.7 F H 01/16/20 02:50 99 24 H 139/74 96 01/16/20 02:14 96.3 F L 104 H 24 H 205/133 H 82 L Date Exam was Performed: 01/16/20 Time Exam was Performed: 03:40 - My Orders Last 24 Hours: My Active Orders 01/16/20 02:39 RT Aerosol Therapy [RC] ASDIRECTED 01/16/20 02:40 RT Aerosol Therapy [RC] ASDIRECTED 01/16/20 03:18 Blood Culture x2 Reflex Set [OM.PC] Stat 01/16/20 03:20 CULTURE BLOOD [BC] Stat 01/16/20 03:24 UA W/REGINA RFLX IF INDICATED [URIN] Stat 01/16/20 03:28 Cefepime [Maxipime in D5W 2 GM/50 ML] 2 gm Premix Bag 1 bag IV ONETIME 01/16/20 03:33 CULTURE BLOOD [BC] Stat 01/16/20 03:34 Admission Status [Patient Status] [ADT] Stat 01/16/20 03:45 Vancomycin 1.5 gm Sodium Chloride 0.9% [Normal Saline] 500 ml IV Q24H - Assessment/Plan Last 24 Hours: My Active Orders 01/16/20 02:39 RT Aerosol Therapy [RC] ASDIRECTED 01/16/20 02:40 RT Aerosol Therapy [RC] ASDIRECTED 01/16/20 03:18 Blood Culture x2 Reflex Set [OM.PC] Stat 01/16/20 03:20 CULTURE BLOOD [BC] Stat 01/16/20 03:24 UA W/REGINA RFLX IF INDICATED [URIN] Stat 01/16/20 03:28 Cefepime [Maxipime in D5W 2 GM/50 ML] 2 gm Premix Bag 1 bag IV ONETIME 01/16/20 03:33 CULTURE BLOOD [BC] Stat 01/16/20 03:34 Admission Status [Patient Status] [ADT] Stat 01/16/20 03:45 Vancomycin 1.5 gm Sodium Chloride 0.9% [Normal Saline] 500 ml IV Q24H
[2020-01-16] MEDS ORDERED: Albuterol/Ipratropium 3.0-0.5 MG/3 ML Neb Soln NEB ONE ×2 (02:39)
--- NOTE | 2020-01-16 03:07 | CR ---
INDICATION: Shortness of breath TECHNIQUE: Chest 1 views COMPARISON: Chest x-ray 01/15/2020 FINDINGS: Cardiovascular and mediastinum: Heart size and vasculature are normal in caliber and appearance. Lungs and pleural spaces: No pleural effusion or pneumothorax. Bilateral diffuse interstitial opacities involving both lungs. Bones and soft tissues: No significant findings. IMPRESSION: Bilateral diffuse interstitial opacities involving both lungs suggestive of an interstitial/viral pneumonia. Dictated by Juan David Macias MD @ Jan 16 2020 3:04AM Signed by Dr. Juan David Macias @ Jan 16 2020 3:05AM
[2020-01-16 03:19] LABS: BLOOD UREA NITROGEN,BUN 9 mg/dL (7.0-18.0); CARBON DIOXIDE,CO2 28.8 mmol/L (21.0-32.0); CHLORIDE,CL 102 mmol/L (98-107); GLUCOSE RANDOM 178 mg/dL (74-106); POTASSIUM,K 3.5 mmol/L (3.5-5.1); SODIUM,NA 140 mmol/L (136-145)
[2020-01-16] MEDS ORDERED: Cefepime 2 GM in Premix Bag 1 BAG IV ONE (03:28)
[2020-01-16] MEDS ORDERED: Acetaminophen 500 MG Tab PO ONE (03:36)
[2020-01-16] MEDS ORDERED: Vancomycin 1.5 GM in Sodium Chloride 0.9% 500 ML IV SCH (03:45)
[2020-01-16] MEDS ORDERED: Sodium Chloride 0.9% 1,000 ML IV ONE (03:59)
[2020-01-16] MEDS: Sodium Chloride 0.9% 1,000 ML IV SCH ×3 (05:22→22:18)
[2020-01-16] MEDS: Albuterol/Ipratropium 3.0-0.5 MG/3 ML Neb Soln NEB SCH ×4 (05:47→23:30)
[2020-01-16] MEDS ORDERED: Ondansetron 4 MG Tab.DIS PO PRN (08:38)
[2020-01-16] MEDS ORDERED: Ondansetron 4 MG/2 ML SDV IVPUSH PRN (08:38)
[2020-01-16] MEDS ORDERED: Ibuprofen 200 MG Tab PO PRN (08:38)
--- NOTE | 2020-01-16 09:03 | PCM.HP.2 ---
Addendum entered and electronically signed by Rudolph Olmos MD 01/16/20 17: 44: Several hours after admission, patient reported to nursing staff that one of her co-workers recently returned from a trip to [place] 1 week ago. [facility] department of health was called for recommendations and stated that patient should be tested for COVID-19. Patient was then moved to negative pressure room with isolation precautions in place. Nasopharyngeal and oropharyngeal swabs were obtained and submitted to lab. This process was explained to patient and she verbalized understanding. Original Note: H&P History of Present Illness - General Date of Service: 01/16/20 Admit Problem/Dx: Admission Diagnosis/Problem Admission Diagnosis/Problem Pneumonia Source of Information: Patient History Limitations: Reports: No Limitations - History of Present Illness Initial Comments - Free Text/Narative: 54-year-old female presented to ER complaining of fevers, shortness of breath and wheezing for the past 2 days. She has a PMH of HTN, hyperlipidemia, GERD and asthma. She has also had a dry cough. Patient tried taking 2 home nebulizer breathing treatment but did not help. She was initially seen in the ER yesterday and was diagnosed with acute viral bronchitis, however, patient reports that her shortness of breath got worse so she came back to the ER. Patient denies any smoking, alcohol or illicit drug use. She has never been hospitalized in the past for an asthma exacerbation. She does not use home oxygen. No recent travel history or hospitalization. She currently works at [employer]. She denies having any productive sputum, blurry vision, nausea, vomiting, diarrhea, constipation, blood in stool, blood in urine, numbness or tingling or leg swelling. In the ER, patient was noted to be febrile, hypoxic and tachycardic. CXR showed b/l interstitial opacities. Lactate was 2.2. Patient given 2 albuterol breathing treatments, IV solumedrol 125 mg, 1 L fluids bolus and given 1 dose of vancomycin and cefepime. Patient admitted for further evaluation and treatment. - Related Data Allergies/Adverse Reactions: Allergies Allergy/AdvReac Type Severity Reaction Status Date / Time anastrozole Allergy Hives Verified 01/16/20 04:42 aspirin Allergy Nausea and Verified 01/16/20 04:42 Vomiting caffeine Allergy Cannot Verified 01/16/20 04:42 Remember erythromycin base Allergy Cannot Verified 01/16/20 04:42 Remember Influenza Virus Vaccines Allergy Other Verified 01/16/20 04:42 Latex, Natural Rubber Allergy Other Verified 01/16/20 04:42 levofloxacin Allergy Hives Verified 01/16/20 04:42 morphine Allergy Cannot Verified 01/16/20 04:42 Remember oxycodone Allergy Cannot Verified 01/16/20 04:42 Remember Penicillins Allergy Hives Verified 01/16/20 04:42 propoxyphene Allergy Cannot Verified 01/16/20 04:42 Remember shellfish derived Allergy Shortness Verified 01/16/20 04:42 of Breath Home Medications: Home Meds Albuterol [Ventolin HFA] 2 inh INH ASDIRECTED 05/06/16 [History] Metoprolol Tartrate 50 mg PO BID 05/06/16 [History] Albuterol [Proventil Neb Soln] 2.5 mg NEB Q4HR PRN #15 neb 09/12/19 [Rx] Calcium Carbonate/Vitamin D3 [Calcium 1,000 + D3 Caplet] 1,000 mcg PO DAILY 06/23 [History] Diclofenac Sodium [Voltaren] 100 mg PO DAILY PRN 09/12/19 [History] Letrozole 2.5 mg PO DAILY 09/12/19 [History] Magnesium 1,000 mg PO DAILY 09/12/19 [History] Montelukast [Singulair] 10 mg PO DAILY 09/12/19 [History] atorvaSTATin [Lipitor] 10 mg PO BEDTIME 09/12/19 [History] Fluticasone Furoate [Arnuity Ellipta] 2 puff IH ASDIRECTED 11/15/19 [History] Fluconazole [Diflucan] 150 mg PO ASDIRECTED PRN 01/16/20 [History] Past Medical History HEENT History: Reports: None Cardiovascular History: Reports: High Cholesterol, Hypertension Respiratory History: Reports: Asthma Gastrointestinal History: Reports: GERD Genitourinary History: Reports: None [employer] History: Reports: Neurological History: Reports: None Endocrine/Metabolic History: Reports: Obesity/BMI 30+ Hematologic History: Reports: None Immunologic History: Reports: None Oncologic (Cancer) History: Reports: None Dermatologic History: Reports: None - Infectious Disease History Infectious Disease History: Reports: Chicken Pox - Past Surgical History HEENT Surgical History: Reports: Other (See Below) Female Surgical History: Reports: Breast Biopsy, Section, Hysterectomy, Salpingo-Oophorectomy Oncologic Surgical History: Reports: Biopsy of Breast, Lumpectomy Social & Family History - Family History Family Medical History: Noncontributory GI: Reports: None : Reports: None OBGYN: Reports: None Musculoskeletal: Reports: None Psychiatric: Reports: None - Tobacco Use Smoking Status *Q: Never Smoker Second Hand Smoke Exposure: No - Caffeine Use Caffeine Use: Reports: Coffee Caffeine Use Comment: Pt stated she drank coffee occassionally - Recreational Drug Use Recreational Drug Use: No H&P Review of Systems - Review of Systems: Review Of Systems: Comprehensive ROS is negative, except as noted in HPI. Exam - Exam Exam: See Below - Vital Signs Vital Signs: Last Vital Signs Temp 101.6 F H 01/16/20 04:30 Pulse 93 01/16/20 04:30 Resp 20 01/16/20 04:30 BP 121/63 01/16/20 04:30 Pulse Ox 95 01/16/20 05:15 Weight: 278 lb 9.6 oz - Exam General: Alert, Oriented, Cooperative, Other (NAD) HEENT: Conjunctiva Clear, EOMI, Hearing Intact, Pupils Equal Neck: Supple, Trachea Midline Lungs: Other (quiet breath sounds, mild wheezing b/l) Cardiovascular: Regular Rate, Regular Rhythm GI/Abdominal Exam: Normal Bowel Sounds, Soft, Non-Tender, No Distention Extremities: Normal Inspection, No Pedal Edema, Other (No calf tenderness b/l) Peripheral Pulses: 2+: Radial (L), Radial (R) Skin: Warm, Dry, Intact Neurological: Cranial Nerves Intact, Strength Equal Bilateral, Normal Speech, Normal Tone Neuro Extensive - Mental Status: Alert, Oriented x3, Normal Mood/Affect Psychiatric: Alert, Normal Affect, Normal Mood - Patient Data Lab Results Last 24 hrs: Laboratory Results - last 24 hr 01/16/20 01/16/20 01/16/20 Range/Units 02:45 02:45 02:45 WBC 10.37 (4.0-11.0) K/uL RBC 4.24 L (4.30-5.90) M/uL Hgb 12.7 (12.0-16.0) g/dL Hct 39.4 (36.0-46.0) % MCV 92.9 (80.0-98.0) fL MCH 30.0 (27.0-32.0) pg MCHC 32.2 (31.0-37.0) g/dL RDW Std Deviation 43.6 (28.0-62.0) fl RDW Coeff of Vani 13 (11.0-15.0) % Plt Count 199 (150-400) K/uL MPV 10.30 (7.40-12.00) fL Neut % (Auto) 83.6 H (48.0-80.0) % Lymph % (Auto) 13.1 L (16.0-40.0) % [place] % (Auto) 2.1 (0.0-15.0) % Eos % (Auto) 1.0 (0.0-7.0) % Baso % (Auto) 0.2 (0.0-1.5) % Neut # (Auto) 8.7 H (1.4-5.7) K/uL Lymph # (Auto) 1.4 (0.6-2.4) K/uL [place] # (Auto) 0.2 (0.0-0.8) K/uL Eos # (Auto) 0.1 (0.0-0.7) K/uL Baso # (Auto) 0.0 (0.0-0.1) K/uL Nucleated RBC % 0.0 /100WBC Nucleated RBCs # 0 K/uL VBG pH 7.42 H (7.31-7.41) VBG pCO2 47 H (35-45) mmHG VBG pO2 33 (30-40) mmHG VBG HCO3 30 (22-30) mEq/L VBG Total CO2 28 L (41-51) mmol/L VBG Base Excess 4.7 H (-3.0-3.0) Lactate (0.20-2.00) mmol/L Sodium 140 (136-145) mmol/L Potassium 3.5 (3.5-5.1) mmol/L Chloride 102 (98-107) mmol/L Carbon Dioxide 28.8 (21.0-32.0) mmol/L BUN 9 (7.0-18.0) mg/dL Creatinine 1.2 H (0.6-1.0) mg/dL Est Cr Clr Drug Dosing TNP Estimated GFR (MDRD) 47.0 ml/min Glucose 178 H (74-106) mg/dL Calcium 8.8 (8.5-10.1) mg/dL Total Bilirubin 0.6 (0.2-1.0) mg/dL AST 23 (15-37) IU/L ALT 31 (14-63) IU/L Alkaline Phosphatase 144 H (46-116) U/L B-Natriuretic Peptide (<100) PG/ML Total Protein 6.8 (6.4-8.2) g/dL Albumin 3.2 L (3.4-5.0) g/dL Globulin 3.6 (2.6-4.0) g/dL Albumin/Globulin Ratio 0.9 (0.9-1.6) Urine Color Urine Appearance Urine pH (5.0-8.0) Ur Specific [place] (1.001-1.035) Urine Protein (NEGATIVE) mg/dL Urine Glucose (UA) (NEGATIVE) mg/dL Urine Ketones (NEGATIVE) mg/dL Urine Occult Blood (NEGATIVE) Urine Nitrite (NEGATIVE) Urine Bilirubin (NEGATIVE) Urine Urobilinogen (<2.0) EU/dL Ur Leukocyte Esterase (NEGATIVE) Urine RBC (0-2/HPF) Urine WBC (0-5/HPF) Ur Epithelial Cells (NONE-FEW) Urine Bacteria (NEGATIVE) 01/16/20 01/16/20 01/16/20 Range/Units 02:45 03:33 05:00 WBC (4.0-11.0) K/uL RBC (4.30-5.90) M/uL Hgb (12.0-16.0) g/dL Hct (36.0-46.0) % MCV (80.0-98.0) fL MCH (27.0-32.0) pg MCHC (31.0-37.0) g/dL RDW Std Deviation (28.0-62.0) fl RDW Coeff of Vani (11.0-15.0) % Plt Count (150-400) K/uL MPV (7.40-12.00) fL Neut % (Auto) (48.0-80.0) % Lymph % (Auto) (16.0-40.0) % [place] % (Auto) (0.0-15.0) % Eos % (Auto) (0.0-7.0) % Baso % (Auto) (0.0-1.5) % Neut # (Auto) (1.4-5.7) K/uL Lymph # (Auto) (0.6-2.4) K/uL [place] # (Auto) (0.0-0.8) K/uL Eos # (Auto) (0.0-0.7) K/uL Baso # (Auto) (0.0-0.1) K/uL Nucleated RBC % /100WBC Nucleated RBCs # K/uL VBG pH (7.31-7.41) VBG pCO2 (35-45) mmHG VBG pO2 (30-40) mmHG VBG HCO3 (22-30) mEq/L VBG Total CO2 (41-51) mmol/L VBG Base Excess (-3.0-3.0) Lactate 2.2 H* (0.20-2.00) mmol/L Sodium (136-145) mmol/L Potassium (3.5-5.1) mmol/L Chloride (98-107) mmol/L Carbon Dioxide (21.0-32.0) mmol/L BUN (7.0-18.0) mg/dL Creatinine (0.6-1.0) mg/dL Est Cr Clr Drug Dosing Estimated GFR (MDRD) ml/min Glucose (74-106) mg/dL Calcium (8.5-10.1) mg/dL Total Bilirubin (0.2-1.0) mg/dL AST (15-37) IU/L ALT (14-63) IU/L Alkaline Phosphatase (46-116) U/L B-Natriuretic Peptide 53 (<100) PG/ML Total Protein (6.4-8.2) g/dL Albumin (3.4-5.0) g/dL Globulin (2.6-4.0) g/dL Albumin/Globulin Ratio (0.9-1.6) Urine Color YELLOW Urine Appearance CLEAR Urine pH 5.5 (5.0-8.0) Ur Specific [place] >= 1.030 (1.001-1.035) Urine Protein 100 H (NEGATIVE) mg/dL Urine Glucose (UA) NEGATIVE (NEGATIVE) mg/dL Urine Ketones NEGATIVE (NEGATIVE) mg/dL Urine Occult Blood TRACE-INTACT H (NEGATIVE) Urine Nitrite NEGATIVE (NEGATIVE) Urine Bilirubin NEGATIVE (NEGATIVE) Urine Urobilinogen 0.2 (<2.0) EU/dL Ur Leukocyte Esterase NEGATIVE (NEGATIVE) Urine RBC 0-2 (0-2/HPF) Urine WBC 0-1 (0-5/HPF) Ur Epithelial Cells OCCASIONAL (NONE-FEW) Urine Bacteria RARE (NEGATIVE) 01/16/20 Range/Units 08:05 WBC (4.0-11.0) K/uL RBC (4.30-5.90) M/uL Hgb (12.0-16.0) g/dL Hct (36.0-46.0) % MCV (80.0-98.0) fL MCH (27.0-32.0) pg MCHC (31.0-37.0) g/dL RDW Std Deviation (28.0-62.0) fl RDW Coeff of Vani (11.0-15.0) % Plt Count (150-400) K/uL MPV (7.40-12.00) fL Neut % (Auto) (48.0-80.0) % Lymph % (Auto) (16.0-40.0) % [place] % (Auto) (0.0-15.0) % Eos % (Auto) (0.0-7.0) % Baso % (Auto) (0.0-1.5) % Neut # (Auto) (1.4-5.7) K/uL Lymph # (Auto) (0.6-2.4) K/uL [place] # (Auto) (0.0-0.8) K/uL Eos # (Auto) (0.0-0.7) K/uL Baso # (Auto) (0.0-0.1) K/uL Nucleated RBC % /100WBC Nucleated RBCs # K/uL VBG pH (7.31-7.41) VBG pCO2 (35-45) mmHG VBG pO2 (30-40) mmHG VBG HCO3 (22-30) mEq/L VBG Total CO2 (41-51) mmol/L VBG Base Excess (-3.0-3.0) Lactate 1.8 (0.20-2.00) mmol/L Sodium (136-145) mmol/L Potassium (3.5-5.1) mmol/L Chloride (98-107) mmol/L Carbon Dioxide (21.0-32.0) mmol/L BUN (7.0-18.0) mg/dL Creatinine (0.6-1.0) mg/dL Est Cr Clr Drug Dosing Estimated GFR (MDRD) ml/min Glucose (74-106) mg/dL Calcium (8.5-10.1) mg/dL Total Bilirubin (0.2-1.0) mg/dL AST (15-37) IU/L ALT (14-63) IU/L Alkaline Phosphatase (46-116) U/L B-Natriuretic Peptide (<100) PG/ML Total Protein (6.4-8.2) g/dL Albumin (3.4-5.0) g/dL Globulin (2.6-4.0) g/dL Albumin/Globulin Ratio (0.9-1.6) Urine Color Urine Appearance Urine pH (5.0-8.0) Ur Specific [place] (1.001-1.035) Urine Protein (NEGATIVE) mg/dL Urine Glucose (UA) (NEGATIVE) mg/dL Urine Ketones (NEGATIVE) mg/dL Urine Occult Blood (NEGATIVE) Urine Nitrite (NEGATIVE) Urine Bilirubin (NEGATIVE) Urine Urobilinogen (<2.0) EU/dL Ur Leukocyte Esterase (NEGATIVE) Urine RBC (0-2/HPF) Urine WBC (0-5/HPF) Ur Epithelial Cells (NONE-FEW) Urine Bacteria (NEGATIVE) Result Diagrams: 01/16/20 02:45 01/16/20 02:45 Rg Results Last 24 hrs: Microbiology 01/16/20 03:33 Anaerobic Blood Culture - Final Blood - Venous - Lab Draw Sepsis Event Note - Evaluation Sepsis Screening Result: Severe Sepsis Risk - Focused Exam Vital Signs: Vital Signs Temp Temp Temp Pulse Resp BP Pulse Ox 01/16/20 05:15 01/16/20 04:30 101.6 F H 93 20 121/63 95 01/16/20 04:05 103.6 F H 90 20 111/62 96 01/16/20 03:47 103.8 F H 93 20 125/72 95 01/16/20 03:25 84 L 01/16/20 03:16 104.7 F H 01/16/20 02:50 99 24 H 139/74 96 01/16/20 02:14 96.3 F L 104 H 24 H 205/133 H 82 L Pulse Ox 01/16/20 05:15 95 01/16/20 04:30 01/16/20 04:05 01/16/20 03:47 01/16/20 03:25 01/16/20 03:16 01/16/20 02:50 01/16/20 02:14 Date Exam was Performed: 01/16/20 Time Exam was Performed: 11:49 Problem List Initiated/Reviewed/Updated: Yes Orders Last 24hrs: Active Orders 24 hr Category Date Time Status Admission Status [Patient Status] [ADT] Stat ADT 01/16/20 03:34 Active Oxygen Therapy [RC] PRN Care 01/16/20 08:38 Active RT Aerosol Therapy [RC] ASDIRECTED Care 01/16/20 05:15 Active Telemetry Monitoring [Cardiac Monitoring] [RC] Q8H Care 01/16/20 04:15 Active Up ad Leslie [RC] ASDIRECTED Care 01/16/20 08:38 Active VTE/DVT Education [RC] PER UNIT ROUTINE Care 01/16/20 08:38 Active Vital Signs [RC] Q4H Care 01/16/20 08:38 Active Regular Diet [DIET] Diet 01/16/20 Breakfast Active CBC WITH AUTO DIFF [HEME] AM Lab 01/17/20 05:11 Ordered COMPREHENSIVE METABOLIC PN,CMP [CHEM] AM Lab 01/17/20 05:11 Ordered CULTURE BLOOD [BC] Stat Lab 01/16/20 03:20 Received CULTURE BLOOD [BC] Stat Lab 01/16/20 03:33 Results Acetaminophen [Tylenol] Med 01/16/20 08:38 Active 650 mg PO Q4H PRN Albuterol/Ipratropium [DuoNeb 3.0-0.5 MG/3 ML] Med 01/16/20 06:00 Active 3 ml NEB Q6HRRT Enoxaparin [Lovenox] Med 01/16/20 08:45 Active 40 mg SUBCUT Q24H Ibuprofen [Motrin] Med 01/16/20 08:38 Ordered 200 mg PO Q6H PRN Metoprolol Tartrate [Lopressor] Med 01/16/20 09:00 Active 50 mg PO BID Montelukast [Singulair] Med 01/16/20 09:00 Active 10 mg PO DAILY Ondansetron [Zofran ODT] Med 01/16/20 08:38 Active 4 mg PO Q4H PRN Ondansetron [Zofran] Med 01/16/20 08:38 Active 4 mg IVPUSH Q4H PRN Pantoprazole [ProTONIX] Med 01/16/20 07:30 Active 40 mg PO ACBREAKFAST Sodium Chloride 0.9% [Normal Saline] 1,000 ml Med 01/16/20 05:15 Active IV ASDIRECTED atorvaSTATin [Lipitor] Med 01/16/20 21:00 Active 10 mg PO BEDTIME Blood Culture x2 Reflex Set [OM.PC] Stat Oth 01/16/20 03:18 Ordered Resuscitation Status Routine Resus Stat 01/16/20 08:38 Ordered Medication Orders Acetaminophen (Tylenol) 650 mg PO Q4H PRN PRN Reason: Pain (Mild 1-3)/fever Albuterol/Ipratropium (Duoneb 3.0-0.5 Mg/3 Ml) 3 ml NEB Q6HRRT [facility] Last Admin: 01/16/20 05:47 Dose: 3 ml Atorvastatin Calcium (Lipitor) 10 mg PO BEDTIME [facility] Enoxaparin Sodium (Lovenox) 40 mg SUBCUT Q24H [facility] Sodium Chloride (Normal Saline) 1,000 mls @ 125 mls/hr IV ASDIRECTED [facility] Last Admin: 01/16/20 05:22 Dose: 125 mls/hr Ibuprofen (Motrin) 200 mg PO Q6H PRN PRN Reason: Pain (mild 1-3) Metoprolol Tartrate (Lopressor) 50 mg PO BID [facility] Montelukast Sodium (Singulair) 10 mg PO DAILY [facility] Ondansetron HCl (Zofran Odt) 4 mg PO Q4H PRN PRN Reason: nausea, able to take PO Ondansetron HCl (Zofran) 4 mg IVPUSH Q4H PRN PRN Reason: Nausea Pantoprazole Sodium (Protonix) 40 mg PO ACBREAKFAST [facility] Assessment/Plan Comment:: Assessment and Plan: 1. Acute hypoxic respiratory failure secondary to community-acquired pneumonia and asthma exacerbation: - Admit to med/surg unit. Continue supplemental oxygen to maintain oxygen saturation > 92%, incentive spirometry, IVF NS @ 125 cc/hr, duonebs q6 and prednisone 40 mg qd. Repeat lactate level was normal. Will start IV ceftriaxone and azithromycin. Blood cultures pending. 2. Acute kidney injury: - IVF, will monitor. 3. Past medical history of HTN, hyperlipidemia and GERD: - Continue home medications. 4. DVT prophylaxis: SCD's as patient refused lovenox.
[2020-01-16] MEDS: Montelukast 10 MG Tab PO SCH (09:06)
[2020-01-16] MEDS: Enoxaparin 40 MG/0.4 ML Syringe SUBCUT SCH ×2 (09:06→09:08)
[2020-01-16] MEDS: Pantoprazole 40 MG Tab.CR PO SCH (09:54)
[2020-01-16] MEDS: Metoprolol Tartrate 50 MG Tab PO SCH ×2 (10:20→20:29)
[2020-01-16] MEDS: cefTRIAXone 1 GM in Premix Bag 1 BAG IV SCH (12:33)
[2020-01-16] MEDS: Azithromycin 250 MG Tab PO SCH (12:38)
[2020-01-16] MEDS: predniSONE 20 MG Tab PO SCH (12:38)
[2020-01-16] MEDS: Acetaminophen 325 MG Tab PO PRN ×2 (14:20→20:28)
[2020-01-16] MEDS: Calcium Carbonate/Vitamin D3 1500 MG-400 Units Tab PO SCH (16:54)
[2020-01-16] MEDS: Magnesium Oxide 400 MG Tab PO SCH (16:55)
[2020-01-16] MEDS ORDERED: atorvaSTATin 10 MG Tab PO SCH (21:00)
[2020-01-17] MEDS: Albuterol/Ipratropium 3.0-0.5 MG/3 ML Neb Soln NEB SCH ×2 (05:25→12:35)
[2020-01-17] MEDS: Pantoprazole 40 MG Tab.CR PO SCH (06:34)
[2020-01-17] MEDS: Sodium Chloride 0.9% 1,000 ML IV SCH (06:36)
[2020-01-17 07:23] LABS: BLOOD UREA NITROGEN,BUN 14 mg/dL (7.0-18.0); CARBON DIOXIDE,CO2 29.7 mmol/L (21.0-32.0); CHLORIDE,CL 107 mmol/L (98-107); GLUCOSE RANDOM 128 mg/dL (74-106); POTASSIUM,K 3.9 mmol/L (3.5-5.1); SODIUM,NA 144 mmol/L (136-145)
[2020-01-17] MEDS: Metoprolol Tartrate 50 MG Tab PO SCH (09:00)
[2020-01-17] MEDS: predniSONE 20 MG Tab PO SCH (09:04)
[2020-01-17] MEDS: Magnesium Oxide 400 MG Tab PO SCH (09:05)
[2020-01-17] MEDS: Calcium Carbonate/Vitamin D3 1500 MG-400 Units Tab PO SCH (09:05)
[2020-01-17] MEDS: Montelukast 10 MG Tab PO SCH (09:06)
[2020-01-17] MEDS: cefTRIAXone 1 GM in Premix Bag 1 BAG IV SCH (12:30)
[2020-01-17] MEDS: Azithromycin 250 MG Tab PO SCH (12:35)
[2020-01-17 12:44] VITALS: BP 150/70; PULSE 64
--- NOTE | 2020-01-17 15:23 | PCM.DCSUM1 ---
Discharge Summary - Hospital Course Free Text/Narrative:: 54-year-old female admitted for acute hypoxic respiratory failure secondary to community acquired pneumonia. She has a PMH of asthma, HTN, GERD and breast cancer. Patient also reported that on her co-workers recently returned from a trip to [place] 1 week ago. As such, [facility] department was called and recommended testing for COVID-19. Patient was placed in non-pressurized room with respiratory droplet precautions. Patient was treated with DuoNebs, prednisone, ceftriaxone and azithromycin. Results of COVID-19 testing are currently pending. On day of discharge, patient reported feeling better and was successfully weaned off of oxygen. [facility] department was contacted prior to discharging patient and they recommended patient and her self- quarantine themselves in their basement apartment until COVID-19 test results have returned. Patient verbalized understanding and was discharged in stable condition. Advised not to return to work until cleared by [facility] after COVID-19 test results have returned. Patient discharged on cefdinir, azithromycin and prednisone. - Discharge Data Discharge Date: 01/17/20 Discharge Disposition: Home, Self-Care 01 Condition: Stable - Referral to Home Health Primary Care Physician: PCP None - Patient Instructions Diet: Usual Diet as Tolerated Notify Provider of: Fever, Increased Pain, Swelling and Redness, Drainage, Nausea and/or Vomiting Other/Special Instructions: PATIENT IS WEAR N95 MASK TO VEHICLE AND GO DIRECTLY HOME. PT. TO QUARANTINE SELF AT HOME AND ALLOW SPOUSE TO INDEPENDENT FREIGHT AGENT PRESCRIPTIONS. SPOUSE WAS DIRECTED TO ALSO WEAR FACE MASK. - Discharge Plan *PRESCRIPTION DRUG MONITORING PROGRAM REVIEWED*: Not Applicable *COPY OF PRESCRIPTION DRUG MONITORING REPORT IN PATIENT CANDE: Not Applicable Prescriptions/Med Rec: Azithromycin 500 mg PO DAILY 3 Days #3 tablet Cefdinir 300 mg PO BID 5 Days #10 capsule predniSONE 40 mg PO WITHBREAKFAST 4 Days #8 tablet Home Medications: Home Meds Albuterol [Ventolin HFA] 2 inh INH ASDIRECTED 05/06/16 [History] Metoprolol Tartrate 50 mg PO BID 05/06/16 [History] Albuterol [Proventil Neb Soln] 2.5 mg NEB Q4HR PRN #15 neb 09/12/19 [Rx] Calcium Carbonate/Vitamin D3 [Calcium 1,000 + D3 Caplet] 1,000 mcg PO DAILY 06/23 [History] Diclofenac Sodium [Voltaren] 100 mg PO DAILY PRN 09/12/19 [History] Letrozole 2.5 mg PO DAILY 09/12/19 [History] Magnesium 1,000 mg PO DAILY 09/12/19 [History] Montelukast [Singulair] 10 mg PO DAILY 09/12/19 [History] atorvaSTATin [Lipitor] 10 mg PO BEDTIME 09/12/19 [History] Fluticasone Furoate [Arnuity Ellipta] 2 puff IH ASDIRECTED 11/15/19 [History] Fluconazole [Diflucan] 150 mg PO ASDIRECTED PRN 01/16/20 [History] Azithromycin 500 mg PO DAILY 3 Days #3 tablet 01/17/20 [Rx] Cefdinir 300 mg PO BID 5 Days #10 capsule 01/17/20 [Rx] predniSONE 40 mg PO WITHBREAKFAST 4 Days #8 tablet 01/17/20 [Rx] Oxygen Therapy Mode: Room Air Patient Handouts: Cefdinir capsules, Azithromycin tablets, Prednisone tablets, Community-Acquired Pneumonia, Adult Referrals: Haydee Cassidy NP [Nurse Practitioner] - 01/27/20 9:45 am (Ayanna was unavailabe until February 02) - Discharge Summary/Plan Comment DC Time >30 min.: No - Patient Data Vitals - Most Recent: Last Vital Signs Temp 98.2 F 01/17/20 12:00 Pulse 64 01/17/20 12:00 Resp 15 01/17/20 12:00 BP 150/70 H 01/17/20 12:00 Pulse Ox 95 01/17/20 12:00 Weight - Most Recent: 278 lb 9.6 oz Lab Results - Last 24 hrs: Laboratory Results - last 24 hr 01/17/20 01/17/20 Range/Units 06:50 06:50 WBC 19.16 H (4.0-11.0) K/uL RBC 3.84 L (4.30-5.90) M/uL Hgb 11.3 L (12.0-16.0) g/dL Hct 35.9 L (36.0-46.0) % MCV 93.5 (80.0-98.0) fL MCH 29.4 (27.0-32.0) pg MCHC 31.5 (31.0-37.0) g/dL RDW Std Deviation 44.8 (28.0-62.0) fl RDW Coeff of Vani 13 (11.0-15.0) % Plt Count 213 (150-400) K/uL MPV 10.60 (7.40-12.00) fL Add Manual Diff YES Neutrophils % (Manual) 79 (48.0-80.0) % Band Neutrophils % 2 % Lymphocytes % (Manual) 15 L (16.0-40.0) % Monocytes % (Manual) 4 (0.0-15.0) % Nucleated RBC % 0.0 /100WBC Absolute Seg Neuts 15.1 H (1.4-5.7) Band Neutrophils # 0.4 Lymphocytes # (Manual) 2.9 H (0.6-2.4) Monocytes # (Manual) 0.8 (0.0-0.8) Nucleated RBCs # 0 K/uL Sodium 144 (136-145) mmol/L Potassium 3.9 (3.5-5.1) mmol/L Chloride 107 (98-107) mmol/L Carbon Dioxide 29.7 (21.0-32.0) mmol/L BUN 14 (7.0-18.0) mg/dL Creatinine 0.8 (0.6-1.0) mg/dL Est Cr Clr Drug Dosing 73.18 mL/min Estimated GFR (MDRD) > 60.0 ml/min Glucose 128 H (74-106) mg/dL Calcium 8.8 (8.5-10.1) mg/dL Total Bilirubin 0.2 (0.2-1.0) mg/dL AST 39 H (15-37) IU/L ALT 38 (14-63) IU/L Alkaline Phosphatase 108 (46-116) U/L Total Protein 6.2 L (6.4-8.2) g/dL Albumin 3.0 L (3.4-5.0) g/dL Globulin 3.2 (2.6-4.0) g/dL Albumin/Globulin Ratio 0.9 (0.9-1.6) REGINA Results - Last 24 hrs: Microbiology 01/16/20 03:33 Aerobic Blood Culture - Preliminary Blood - Venous - Lab Draw NO GROWTH AFTER 1 DAY Anaerobic Blood Culture - Final 01/16/20 03:20 Aerobic Blood Culture - Preliminary Blood - Venous NO GROWTH AFTER 1 DAY Anaerobic Blood Culture - Preliminary NO GROWTH AFTER 1 DAY Med Orders - Current: Current Medications Discontinued Medications Acetaminophen (Tylenol Extra Strength) 1,000 mg PO ONETIME ONE Stop: 01/16/20 03:37 Last Admin: 01/16/20 03:47 Dose: 1,000 mg Acetaminophen (Tylenol) 650 mg PO Q4H PRN PRN Reason: Pain (Mild 1-3)/fever Last Admin: 01/16/20 20:28 Dose: 650 mg Albuterol/Ipratropium (Duoneb 3.0-0.5 Mg/3 Ml) 3 ml NEB ONETIME ONE Stop: 01/16/20 02:40 Last Admin: 01/16/20 02:46 Dose: 3 ml Albuterol/Ipratropium (Duoneb 3.0-0.5 Mg/3 Ml) 3 ml NEB ONETIME ONE Stop: 01/16/20 02:40 Last Admin: 01/16/20 02:15 Dose: 3 ml Albuterol/Ipratropium (Duoneb 3.0-0.5 Mg/3 Ml) 3 ml NEB Q6HRRT [facility] Last Admin: 01/17/20 12:35 Dose: 3 ml Atorvastatin Calcium (Lipitor) 10 mg PO BEDTIME [facility] Last Admin: 01/16/20 20:28 Dose: 10 mg Azithromycin (Zithromax) 500 mg PO Q24H [facility] Last Admin: 01/17/20 12:35 Dose: 500 mg Calcium Carbonate (Caltrate 600+D 1500 Mg-400 Units) 1 tab PO DAILY [facility] Last Admin: 01/17/20 09:05 Dose: 1 tab Enoxaparin Sodium (Lovenox) 40 mg SUBCUT Q24H [facility] Last Admin: 01/16/20 09:08 Dose: Not Given Cefepime HCl 2 gm/ Premix 50 mls @ 100 mls/hr IV ONETIME ONE Stop: 01/16/20 03:57 Last Admin: 01/16/20 05:13 Dose: 100 mls/hr Vancomycin HCl 1.5 gm/ Sodium (Chloride) 500 mls @ 333 mls/hr IV Q24H [facility] Last Admin: 01/16/20 03:52 Dose: Not Given Vancomycin HCl 1.5 gm/ Premix 300 mls @ 300 mls/hr IV ONETIME ONE; Protocol Stop: 01/16/20 03:51 Last Admin: 01/16/20 04:01 Dose: 300 mls/hr Sodium Chloride (Normal Saline) 1,000 mls @ 999 mls/hr IV .BOLUS ONE Stop: 01/16/20 04:59 Last Admin: 01/16/20 04:03 Dose: 999 mls/hr Sodium Chloride (Normal Saline) 1,000 mls @ 125 mls/hr IV ASDIRECTED [facility] Last Admin: 01/17/20 06:36 Dose: 125 mls/hr Ceftriaxone Sodium/Dextrose 1 (gm/ Premix) 50 mls @ 100 mls/hr IV Q24H [facility] Last Admin: 01/17/20 12:30 Dose: 100 mls/hr Ibuprofen (Motrin) 200 mg PO Q6H PRN PRN Reason: Pain (mild 1-3) Last Admin: 01/16/20 09:05 Dose: 200 mg Magnesium Oxide (Magnesium Oxide) 1,000 mg PO DAILY [facility] Last Admin: 01/17/20 09:05 Dose: 1,000 mg Methylprednisolone Sodium Succinate (Solu-Medrol) 125 mg IVPUSH ONETIME ONE Stop: 01/16/20 02:31 Last Admin: 01/16/20 02:34 Dose: 125 mg Methylprednisolone Sodium Succinate (Solu-Medrol) Confirm Administered Dose 125 mg .ROUTE .STK-MED ONE Stop: 01/16/20 02:27 Last Admin: 01/16/20 02:39 Dose: Not Given Metoprolol Tartrate (Lopressor) 50 mg PO BID [facility] Last Admin: 01/17/20 09:00 Dose: 50 mg Montelukast Sodium (Singulair) 10 mg PO DAILY [facility] Last Admin: 01/17/20 09:06 Dose: 10 mg Ondansetron HCl (Zofran Odt) 4 mg PO Q4H PRN PRN Reason: nausea, able to take PO Ondansetron HCl (Zofran) 4 mg IVPUSH Q4H PRN PRN Reason: Nausea Pantoprazole Sodium (Protonix) 40 mg PO ACBREAKFAST [facility] Last Admin: 01/17/20 06:34 Dose: 40 mg Prednisone (Prednisone) 40 mg PO WITHBREAKFAST [facility] Last Admin: 01/17/20 09:04 Dose: 40 mg
[2020-01-20 10:02] LABS: BORDETELLA PARAPERT IS1001 Not Detected (Not Detected)
== END 2020-01-17 13:40 | disposition home or self-care (01) | DRG 139 ==
LOC: MW.ED 02:14 → MW.MS 03:34 → OBSVTOIN 15:49 → MW.MS 16:00
PROVIDERS: ADMIT Internal Medicine; ATTEND Internal Medicine
DX: J18.9 Pneumonia, unspecified organism (principal); I10 Essential (primary) hypertension; E78.5 Hyperlipidemia, unspecified; K21.9 Gastro-esophageal reflux disease without esophagitis; E66.9 Obesity, unspecified; J45.901 Unspecified asthma with (acute) exacerbation; J96.01 Acute respiratory failure with hypoxia; N17.9 Acute kidney failure, unspecified; D72.829 Elevated white blood cell count, unspecified; T38.0X5A Adverse effect of glucocorticoids and synthetic analogues, initial encounter; Z88.6 Allergy status to analgesic agent; Z88.1 Allergy status to other antibiotic agents; Z88.8 Allergy status to other drugs, medicaments and biological substances; Z88.7 Allergy status to serum and vaccine; Z88.5 Allergy status to narcotic agent; Z88.0 Allergy status to penicillin; Z91.013 Allergy to seafood; Z79.51 Long term (current) use of inhaled steroids; Z79.899 Other long term (current) drug therapy; Z90.710 Acquired absence of both cervix and uterus; Z90.79 Acquired absence of other genital organ(s); Z90.721 Acquired absence of ovaries, unilateral; Z99.81 Dependence on supplemental oxygen; Z68.42 Body mass index [BMI] 45.0-49.9, adult; Z20.828 Contact with and (suspected) exposure to other viral communicable diseases
CPT/HCPCS: 36415; 71045; 71045-26; 80053; 81001; 82803; 83605; 83880; 85025; 87040; 87486; 87581; 87632; 87798; 94640; 96372; 99284; 99285-25; A9270-GY; J0692; J0696; J1650; J2930; J3370; J7030; J7620-GY; U0001; U0002

== ENCOUNTER 2020-01-22 15:58 | Emergency (ER) | payer BC ==
--- NOTE | 2020-01-22 16:19 | EDM.PDOC ---
ED HPI GENERAL MEDICAL PROBLEM - General Chief Complaint: Respiratory Problem Stated Complaint: TROUBLE BREATHING Time Seen by Provider: 01/22/20 16:19 Source of Information: Reports: Patient History Limitations: Reports: No Limitations - History of Present Illness INITIAL COMMENTS - FREE TEXT/NARRATIVE: This 54 year old female is admitted to the ED with a chief complaint of SOB and mild wheezing. She states that she was diagnosed with bilateral pneumonia and placed on an antibiotic which she states is helping some but she feel mild SOB and has only one more antibiotic to take. She was hospitalized for two days by Dr. Talley. She denies any chest pain. She denies any nausea or vomiting. She denies any other symptoms at this time. Onset: Gradual (over several days) Location: Reports: Chest Severity: Mild (with slight wheezing) chest Pain Score (Numeric/FACES): 5 - Related Data Allergies Allergy/AdvReac Type Severity Reaction Status Date / Time anastrozole Allergy Hives Verified 01/16/20 04:42 aspirin Allergy Nausea and Verified 01/16/20 04:42 Vomiting erythromycin base Allergy Cannot Verified 01/16/20 04:42 Remember Influenza Virus Vaccines Allergy Other Verified 01/16/20 04:42 Latex, Natural Rubber Allergy Other Verified 01/16/20 04:42 levofloxacin Allergy Hives Verified 01/16/20 04:42 morphine Allergy Cannot Verified 01/16/20 04:42 Remember oxycodone Allergy Cannot Verified 01/16/20 04:42 Remember Penicillins Allergy Hives Verified 01/16/20 04:42 propoxyphene Allergy Cannot Verified 01/16/20 04:42 Remember shellfish derived Allergy Shortness Verified 01/16/20 04:42 of Breath Home Meds: Home Meds Albuterol [Ventolin HFA] 2 inh INH ASDIRECTED 05/06/16 [History] Metoprolol Tartrate 50 mg PO BID 05/06/16 [History] Albuterol [Proventil Neb Soln] 2.5 mg NEB Q4HR PRN #15 neb 09/12/19 [Rx] Calcium Carbonate/Vitamin D3 [Calcium 1,000 + D3 Caplet] 1,000 mcg PO DAILY 06/23 [History] Diclofenac Sodium [Voltaren] 100 mg PO DAILY PRN 09/12/19 [History] Letrozole 2.5 mg PO DAILY 09/12/19 [History] Magnesium 1,000 mg PO DAILY 09/12/19 [History] Montelukast [Singulair] 10 mg PO DAILY 09/12/19 [History] atorvaSTATin [Lipitor] 10 mg PO BEDTIME 09/12/19 [History] Fluticasone Furoate [Arnuity Ellipta] 2 puff IH ASDIRECTED 11/15/19 [History] Fluconazole [Diflucan] 150 mg PO ASDIRECTED PRN 01/16/20 [History] Azithromycin 500 mg PO DAILY 3 Days #3 tablet 01/17/20 [Rx] Cefdinir 300 mg PO BID 5 Days #10 capsule 01/17/20 [Rx] predniSONE 40 mg PO WITHBREAKFAST 4 Days #8 tablet 01/17/20 [Rx] Azithromycin [Zithromax] 500 mg PO DAILY 5 Days #5 tab 01/22/20 [Rx] Lansoprazole 30 mg PO DAILY 01/22/20 [History] Levofloxacin 500 mg PO DAILY 01/22/20 [History] methylPREDNISolone [Methylprednisolone] 01/22/20 [History] Past Medical History HEENT History: Reports: None Cardiovascular History: Reports: High Cholesterol, Hypertension Respiratory History: Reports: Asthma Gastrointestinal History: Reports: GERD Genitourinary History: Reports: None 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: Neurological History: Reports: None Endocrine/Metabolic History: Reports: Obesity/BMI 30+ Hematologic History: Reports: None Immunologic History: Reports: None Oncologic (Cancer) History: Reports: None Dermatologic History: Reports: None - Infectious Disease History Infectious Disease History: Reports: Chicken Pox - Past Surgical History HEENT Surgical History: Reports: Other (See Below) Female Surgical History: Reports: Breast Biopsy, Section, Hysterectomy, Salpingo-Oophorectomy Oncologic Surgical History: Reports: Biopsy of Breast, Lumpectomy Social & Family History - Family History Family Medical History: Noncontributory GI: Reports: None : Reports: None OBGYN: Reports: None Musculoskeletal: Reports: None Psychiatric: Reports: None - Caffeine Use Caffeine Use: Reports: Coffee Caffeine Use Comment: Pt stated she drank coffee occassionally ED ROS GENERAL - Review of Systems Review Of Systems: See Below Constitutional: Reports: No Symptoms HEENT: Reports: No Symptoms Respiratory: Reports: Shortness of Breath, Wheezing, Cough (very mild). Denies : Sputum, Hemoptysis Cardiovascular: Reports: No Symptoms Endocrine: Reports: No Symptoms GI/Abdominal: Reports: No Symptoms : Reports: No Symptoms Musculoskeletal: Reports: No Symptoms Skin: Reports: No Symptoms Neurological: Reports: No Symptoms ED EXAM, GENERAL - Physical Exam Exam: See Below Exam Limited By: No Limitations General Appearance: Alert, WD/WN, No Apparent Distress Ears: Normal External Exam, Normal Canal, Hearing Grossly Normal, Normal TMs Nose: Normal Inspection, Normal Mucosa, No Blood Throat/Mouth: Normal Inspection, Normal Lips, Normal Teeth, Normal Gums, Normal Oropharynx, Normal Voice, No Airway Compromise Head: Atraumatic, Normocephalic Neck: Normal Inspection, Supple, Non-Tender, Full Range of Motion Respiratory/Chest: No Respiratory Distress, Chest Non-Tender, Rales (very mild rales in both bases with ) Course - Vital Signs Text/Narrative:: The patient was re-examined at 6:10PM. She is breathing much better. She no longer has a prolonged expiratory phase. She states that she feel well enough to go home. She will be discharged. She agrees with the discharge plan. Last Recorded V/S: Last Vital Signs Temp 97.1 F 01/22/20 16:09 Pulse 75 01/22/20 18:30 Resp 16 01/22/20 18:30 BP 124/68 01/22/20 18:30 Pulse Ox 94 L 01/22/20 18:30 - Orders/Labs/Meds Orders: Active Orders 24 hr Category Date Time Status EKG 12 Lead [EKG Documentation Completion] [RC] STAT Care 01/22/20 16:24 Active RT Aerosol Therapy [RC] ASDIRECTED Care 01/22/20 16:32 Active RT Aerosol Therapy [RC] ASDIRECTED Care 01/22/20 16:46 Active Meds: Medications Discontinued Medications Generic Name Dose Route Start Last Admin Trade Name Freq PRN Reason Stop Dose Admin Albuterol/Ipratropium 3 ml 01/22/20 16:32 01/22/20 16:42 Duoneb 3.0-0.5 Mg/3 Ml NEB 01/22/20 16:33 3 ml ONETIME ONE Administration Albuterol/Ipratropium 3 ml 01/22/20 16:46 01/22/20 16:49 Duoneb 3.0-0.5 Mg/3 Ml NEB 01/22/20 16:47 3 ml ONETIME ONE Administration Magnesium Sulfate 1 gm/ Sodium 52 mls @ 104 mls/hr 01/22/20 16:45 01/22/20 17 :11 Chloride IV 01/22/20 17:14 104 mls/hr ONETIME ONE Administration Departure - Departure Time of Disposition: 18:13 Disposition: Home, Self-Care 01 Condition: Good Clinical Impression: COPD exacerbation Pneumonia Qualifiers: Pneumonia type: due to unspecified organism Laterality: bilateral Lung location : lower lobe of lung Qualified Code(s): J18.9 - Pneumonia, unspecified organism - Discharge Information *PRESCRIPTION DRUG MONITORING PROGRAM REVIEWED*: Yes *COPY OF PRESCRIPTION DRUG MONITORING REPORT IN PATIENT CANDE: Yes Prescriptions: Azithromycin [Zithromax] 500 mg PO DAILY 5 Days #5 tab Instructions: Chronic Obstructive Pulmonary Disease Exacerbation, [id number] , Community-Acquired Pneumonia, Adult, [id number] Referrals: Ewa Urena FINANCE OFFICER [Primary Care Provider] - Forms: ED Department Discharge, ED Return to Work/School Form Additional Instructions: Take all medications as directed. Follow up with your PCP in the next two to four days. Drink plenty of clear liquids for the next 24-48 hours. Rest for the next 24 hours. Return to the ED if your condition gets worse or should you have any questions or concerns. The following information is given to patients seen in the emergency department who are being discharged to home. This information is to outline your options for follow-up care. We provide all patients seen in our emergency department with a follow-up referral. The need for follow-up, as well as the timing and circumstances, are variable depending upon the specifics of your emergency department visit. If you don't have a primary care physician on staff, we will provide you with a referral. We always advise you to contact your personal physician following an emergency department visit to inform them of the circumstance of the visit and for follow-up with them and/or the need for any referrals to a consulting specialist. The emergency department will also refer you to a specialist when appropriate. This referral assures that you have the opportunity for follow-up care with a specialist. All of these measure are taken in an effort to provide you with optimal care, which includes your follow-up. Under all circumstances we always encourage you to contact your private physician who remains a resource for coordinating your care. When calling for follow-up care, please make the office aware that this follow-up is from your recent emergency room visit. If for any reason you are refused follow-up, please contact the [facility] Emergency Department at and asked to speak to the emergency department charge nurse. Sepsis Event Note - Focused Exam Date Exam was Performed: 01/23/20 Time Exam was Performed: 07:51 - My Orders Last 24 Hours: My Active Orders 01/22/20 16:24 EKG 12 Lead [EKG Documentation Completion] [RC] STAT 01/22/20 16:32 RT Aerosol Therapy [RC] ASDIRECTED 01/22/20 16:46 RT Aerosol Therapy [RC] ASDIRECTED - Assessment/Plan Last 24 Hours: My Active Orders 01/22/20 16:24 EKG 12 Lead [EKG Documentation Completion] [RC] STAT 01/22/20 16:32 RT Aerosol Therapy [RC] ASDIRECTED 01/22/20 16:46 RT Aerosol Therapy [RC] ASDIRECTED
[2020-01-22] MEDS ORDERED: Albuterol/Ipratropium 3.0-0.5 MG/3 ML Neb Soln NEB ONE ×2 (16:32→16:46)
[2020-01-22] MEDS ORDERED: Magnesium Sulfate (4.06 MEQ/ML) 5 GM/10 ML SDV IV ONE (16:33)
[2020-01-22 18:43] VITALS: BP 124/68; PULSE 75
== END 2020-01-22 18:30 | disposition home or self-care (01) ==
LOC: MW.ED 15:58
DX: J18.9 Pneumonia, unspecified organism (principal); J44.1 Chronic obstructive pulmonary disease with (acute) exacerbation; I10 Essential (primary) hypertension; E78.00 Pure hypercholesterolemia, unspecified; K21.9 Gastro-esophageal reflux disease without esophagitis; E66.9 Obesity, unspecified; Z68.41 Body mass index [BMI] 40.0-44.9, adult; Z88.8 Allergy status to other drugs, medicaments and biological substances; Z88.1 Allergy status to other antibiotic agents; Z88.7 Allergy status to serum and vaccine; Z88.5 Allergy status to narcotic agent; Z91.040 Latex allergy status; Z91.013 Allergy to seafood; Z88.0 Allergy status to penicillin; Z79.899 Other long term (current) drug therapy
CPT/HCPCS: 93005; 94640; 96365; 99284; J3475; J7050; J7620-GY

== ENCOUNTER 2021-03-28 04:04 | Emergency (ER) | payer BC ==
[2021-03-28] MEDS ORDERED: Aspirin 81 MG Tab.Chew PO ONE (04:14)
[2021-03-28] MEDS ORDERED: Sodium Chloride 0.9% 2.5 ML Syringe FLUSH PRN (04:14)
[2021-03-28] MEDS ORDERED: Sodium Chloride 0.9% 10 ML Syringe FLUSH PRN (04:14)
--- NOTE | 2021-03-28 04:14 | EDM.PDOC ---
<Hector Bergman - Last Filed: 03/28/21 06:48> ED HPI GENERAL MEDICAL PROBLEM - General Stated Complaint: CHEST PAIN Time Seen by Provider: 03/28/21 04:12 Source of Information: Reports: Patient History Limitations: Reports: No Limitations - History of Present Illness INITIAL COMMENTS - FREE TEXT/NARRATIVE: 56-year-old female past medical history COPD, asthma presents for chest pain. Patient states that she has had similar chest pains in the past but never as long lasting. Patient states that she was in her car outside of [facility] about to go to work when she began to experience a left anterior chest pain. The pain does radiate into her left upper back. It is difficult for her to describe the quality of the pain. It is not very severe. It is worse with deep breaths then. She notes that she has recently been burning a candle for the last couple of days and that burning the candle seems to upset her asthma. She feels like she cannot take a deep breath then but denies shortness of breath. chest Pain Score (Numeric/FACES): 7 - Related Data Allergies Allergy/AdvReac Type Severity Reaction Status Date / Time anastrozole Allergy Hives Verified 03/28/21 04:19 aspirin Allergy Nausea and Verified 03/28/21 04:19 Vomiting erythromycin base Allergy Cannot Verified 03/28/21 04:19 Remember Influenza Virus Vaccines Allergy Other Verified 03/28/21 04:19 Latex, Natural Rubber Allergy Other Verified 03/28/21 04:19 levofloxacin Allergy Hives Verified 03/28/21 04:19 morphine Allergy Cannot Verified 03/28/21 04:19 Remember oxycodone Allergy Cannot Verified 03/28/21 04:19 Remember Penicillins Allergy Hives Verified 03/28/21 04:19 propoxyphene Allergy Cannot Verified 03/28/21 04:19 Remember shellfish derived Allergy Shortness Verified 03/28/21 04:19 of Breath Home Meds: Home Meds Albuterol [Ventolin HFA] 2 inh INH ASDIRECTED 05/06/16 [History] Metoprolol Tartrate 50 mg PO BID 05/06/16 [History] Albuterol [Proventil Neb Soln] 2.5 mg NEB Q4HR PRN #15 neb 09/12/19 [Rx] Calcium Carbonate/Vitamin D3 [Calcium 1,000 + D3 Caplet] 1,000 mcg PO DAILY 09/12/19 [History] Diclofenac Sodium [Voltaren] 100 mg PO DAILY PRN 09/12/19 [History] Letrozole 2.5 mg PO DAILY 09/12/19 [History] Magnesium 1,000 mg PO DAILY 09/12/19 [History] Montelukast [Singulair] 10 mg PO DAILY 09/12/19 [History] atorvaSTATin [Lipitor] 10 mg PO BEDTIME 09/12/19 [History] Fluticasone Furoate [Arnuity Ellipta] 2 puff IH ASDIRECTED 11/15/19 [History] Fluconazole [Diflucan] 150 mg PO ASDIRECTED PRN 01/16/20 [History] Azithromycin 500 mg PO DAILY 3 Days #3 tablet 01/17/20 [Rx] Cefdinir 300 mg PO BID 5 Days #10 capsule 01/17/20 [Rx] predniSONE 40 mg PO WITHBREAKFAST 4 Days #8 tablet 01/17/20 [Rx] Azithromycin [Zithromax] 500 mg PO DAILY 5 Days #5 tab 01/22/20 [Rx] Lansoprazole 30 mg PO DAILY 01/22/20 [History] Levofloxacin 500 mg PO DAILY 01/22/20 [History] methylPREDNISolone [Methylprednisolone] 01/22/20 [History] methylPREDNISolone [Medrol Dose Pack] 4 mg PO DAILY #21 tab 03/28/21 [Rx] Past Medical History HEENT History: Reports: None Cardiovascular History: Reports: High Cholesterol, Hypertension Respiratory History: Reports: Asthma Gastrointestinal History: Reports: GERD Genitourinary History: Reports: None 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: Neurological History: Reports: None Endocrine/Metabolic History: Reports: Obesity/BMI 30+ Hematologic History: Reports: None Immunologic History: Reports: None Oncologic (Cancer) History: Reports: None Dermatologic History: Reports: None - Infectious Disease History Infectious Disease History: Reports: Chicken Pox - Past Surgical History HEENT Surgical History: Reports: Other (See Below) Female Surgical History: Reports: Breast Biopsy, Section, Hysterectomy, Salpingo-Oophorectomy Oncologic Surgical History: Reports: Biopsy of Breast, Lumpectomy Social & Family History - Family History Family Medical History: No Pertinent Family History GI: Reports: None : Reports: None OBGYN: Reports: None Musculoskeletal: Reports: None Psychiatric: Reports: None - Caffeine Use Caffeine Use: Reports: Coffee Caffeine Use Comment: Pt stated she drank coffee occassionally ED ROS GENERAL - Review of Systems Review Of Systems: Comprehensive ROS is negative, except as noted in HPI. ED EXAM, GENERAL - Physical Exam Exam: See Below Exam Limited By: No Limitations General Appearance: Alert, WD/WN, No Apparent Distress Throat/Mouth: Normal Voice, No Airway Compromise Head: Atraumatic, Normocephalic Neck: Normal Inspection Respiratory/Chest: No Respiratory Distress, Lungs Clear, Normal Breath Sounds, No Accessory Muscle Use Cardiovascular: Normal Peripheral Pulses, Regular Rate, Rhythm, No Edema GI/Abdominal: Soft, Non-Tender Extremities: Normal Inspection Neurological: Alert, Normal Cognition, Normal Gait Psychiatric: Normal Affect, Normal Mood Skin Exam: Warm, Dry, Intact, Normal Color #1 Interpretation EKG Date: 03/28/21 Time: 04:06 Rhythm: NSR Rate (Beats/Min): 58 [place]: Normal P-Wave: Present QRS: Normal ST-T: Normal QT: Normal [place]/PQ Interval: 158 EKG Interpretation Comments: normal EKG Course - Re-Assessments/Exams Free Text/Narrative Re-Assessment/Exam: 03/28/21 04:26 Patient's physical exam is unremarkable. Her EKG is normal. Will get labs including troponin and D-dimer to screen for cardiac pathology. Will follow up results and disposition accordingly. HEART score = 3 03/28/21 05:05 Patient's initial troponin is negative. However her D-dimer is elevated. Will get CTA to rule pulmonary embolism as cause of patient's pain. Will get a repeat troponin at 7AM 03/28/21 06:48 CT imaging is unremarkable. Will sign out patient to day team physician Dr. Darnell to follow-up repeat troponin and disposition. Departure - Departure Disposition: Home, Self-Care 01 Clinical Impression: Chest pain - Discharge Information Prescriptions: methylPREDNISolone [Medrol Dose Pack] 4 mg PO DAILY #21 tab Instructions: Nonspecific Chest Pain, Adult, [id number] Referrals: PCP,None [Primary Care Provider] - Additional Instructions: [facility] - Primary Care [address] [place] [phone] [address] [place] [address] The following information is given to patients seen in the emergency department who are being discharged to home. This information is to outline your options for follow-up care. We provide all patients seen in our emergency department with a follow-up referral. The need for follow-up, as well as the timing and circumstances, are variable depending upon the specifics of your emergency department visit. If you don't have a primary care physician on staff, we will provide you with a referral. We always advise you to contact your personal physician following an emergency department visit to inform them of the circumstance of the visit and for follow-up with them and/or the need for any referrals to a consulting specialist. The emergency department will also refer you to a specialist when appropriate. This referral assures that you have the opportunity for follow-up care with a specialist. All of these measure are taken in an effort to provide you with optimal care, which includes your follow-up. Under all circumstances we always encourage you to contact your private physician who remains a resource for coordinating your care. When calling for follow-up care, please make the office aware that this follow-up is from your recent emergency room visit. If for any reason you are refused follow-up, please contact the [facility] Emergency Department at and asked to speak to the emergency department charge nurse. <Ambrocio Darnell - Last Filed: 03/28/21 07:30> Course - Vital Signs Text/Narrative:: 7:23 AM patient was signed out to me by my partner at the end of his shift at 7 AM. The patient feels better. Second troponin is negative. CT angio was negative. Plan for this young lady is to stop using the candles that were inciting the exacerbation of her asthma, put her on a short course of steroids, increase fluids, and return as needed. Last Recorded V/S: Last Vital Signs Temp 36.2 C 03/28/21 07:04 Pulse 54 L 03/28/21 07:04 Resp 18 03/28/21 07:04 BP 124/74 03/28/21 07:04 Pulse Ox 97 03/28/21 07:04 - Orders/Labs/Meds Orders: Active Orders 24 hr Category Date Time Status Cardiac Monitoring [RC] . DIRECTED Care 03/28/21 04:14 Active EKG Documentation Completion [RC] STAT Care 03/28/21 04:14 Active Pulse Oximetry [RC] ASDIRECTED Care 03/28/21 04:14 Active Sodium Chloride 0.9% [Saline Flush] Med 03/28/21 04:14 Active 10 ml FLUSH ASDIRECTED PRN Sodium Chloride 0.9% [Saline Flush] Med 03/28/21 04:14 Active 2.5 ml FLUSH ASDIRECTED PRN Saline Lock Insert [OM.PC] Stat Oth 03/28/21 04:14 Ordered Medication Orders Sodium Chloride (Sodium Chloride 0.9% 10 Ml Syringe) 10 ml FLUSH ASDIRECTED PRN PRN Reason: Keep Vein Open Last Admin: 03/28/21 04:27 Dose: 10 ml Documented by: FRANCISCA Sodium Chloride (Sodium Chloride 0.9% 2.5 Ml Syringe) 2.5 ml FLUSH ASDIRECTED PRN PRN Reason: Keep Vein Open Last Admin: 03/28/21 04:27 Dose: 2.5 ml Documented by: FRANCISCA Labs: Laboratory Tests 03/28/21 03/28/21 03/28/21 Range/Units 04:14 04:14 04:25 WBC 10.12 (4.0-11.0) K/uL RBC 4.20 L (4.30-5.90) M/uL Hgb 12.6 (12.0-16.0) g/dL Hct 39.1 (36.0-46.0) % MCV 93.1 (80.0-98.0) fL MCH 30.0 (27.0-32.0) pg MCHC 32.2 (31.0-37.0) g/dL RDW Std Deviation 43.5 (28.0-62.0) fl RDW Coeff of Vani 13 (11.0-15.0) % Plt Count 323 (150-400) K/uL MPV 10.40 (7.40-12.00) fL Neut % (Auto) 54.8 (48.0-80.0) % Lymph % (Auto) 36.5 (16.0-40.0) % Jerauld % (Auto) 6.6 (0.0-15.0) % Eos % (Auto) 1.8 (0.0-7.0) % Baso % (Auto) 0.3 (0.0-1.5) % Neut # (Auto) 5.6 (1.4-5.7) K/uL Lymph # (Auto) 3.7 H (0.6-2.4) K/uL J[place] # (Auto) 0.7 (0.0-0.8) K/uL Eos # (Auto) 0.2 (0.0-0.7) K/uL Baso # (Auto) 0.0 (0.0-0.1) K/uL Nucleated RBC % 0.0 /100WBC Nucleated RBCs # 0 K/uL D-Dimer, Quantitative 0.67 H (0.0-0.50) mg/L FEU Sodium 141 (136-145) mmol/L Potassium 4.1 (3.5-5.1) mmol/L Chloride 104 (98-107) mmol/L Carbon Dioxide 30.0 (21.0-32.0) mmol/L BUN 15 (7.0-18.0) mg/dL Creatinine 1.2 H (0.6-1.0) mg/dL Est Cr Clr Drug Dosing TNP Estimated GFR (MDRD) 46.6 ml/min Glucose 119 H (74-106) mg/dL Calcium 8.5 (8.5-10.1) mg/dL Total Bilirubin 0.2 (0.2-1.0) mg/dL AST 20 (15-37) IU/L ALT 31 (14-63) IU/L Alkaline Phosphatase 150 H (46-116) U/L Troponin I < 0.050 (0.000-0.056) ng/mL Total Protein 6.9 (6.4-8.2) g/dL Albumin 3.4 (3.4-5.0) g/dL Globulin 3.5 (2.6-4.0) g/dL Albumin/Globulin Ratio 1.0 (0.9-1.6) // Range/Units 06:55 WBC (4.0-11.0) K/uL RBC (4.30-5.90) M/uL Hgb (12.0-16.0) g/dL Hct (36.0-46.0) % MCV (80.0-98.0) fL MCH (27.0-32.0) pg MCHC (31.0-37.0) g/dL RDW Std Deviation (28.0-62.0) fl RDW Coeff of Vani (11.0-15.0) % Plt Count (150-400) K/uL MPV (7.40-12.00) fL Neut % (Auto) (48.0-80.0) % Lymph % (Auto) (16.0-40.0) % J[place] % (Auto) (0.0-15.0) % Eos % (Auto) (0.0-7.0) % Baso % (Auto) (0.0-1.5) % Neut # (Auto) (1.4-5.7) K/uL Lymph # (Auto) (0.6-2.4) K/uL J[place]uld # (Auto) (0.0-0.8) K/uL Eos # (Auto) (0.0-0.7) K/uL Baso # (Auto) (0.0-0.1) K/uL Nucleated RBC % /100WBC Nucleated RBCs # K/uL D-Dimer, Quantitative (0.0-0.50) mg/L FEU Sodium (136-145) mmol/L Potassium (3.5-5.1) mmol/L Chloride (98-107) mmol/L Carbon Dioxide (21.0-32.0) mmol/L BUN (7.0-18.0) mg/dL Creatinine (0.6-1.0) mg/dL Est Cr Clr Drug Dosing Estimated GFR (MDRD) ml/min Glucose (74-106) mg/dL Calcium (8.5-10.1) mg/dL Total Bilirubin (0.2-1.0) mg/dL AST (15-37) IU/L ALT (14-63) IU/L Alkaline Phosphatase (46-116) U/L Troponin I < 0.050 (0.000-0.056) ng/mL Total Protein (6.4-8.2) g/dL Albumin (3.4-5.0) g/dL Globulin (2.6-4.0) g/dL Albumin/Globulin Ratio (0.9-1.6) Meds: Medications Generic Name Dose Route Start Last Admin Trade Name Freq PRN Reason Stop Dose Admin Sodium Chloride 10 ml 03/28/21 04:14 03/28/21 04:27 Sodium Chloride 0.9% 10 Ml Syringe FLUSH 10 ml ASDIRECTED PRN Administration Keep Vein Open Sodium Chloride 2.5 ml 03/28/21 04:14 03/28/21 04:27 Sodium Chloride 0.9% 2.5 Ml Syringe FLUSH 2.5 ml ASDIRECTED PRN Administration Keep Vein Open Discontinued Medications Generic Name Dose Route Start Last Admin Trade Name Freq PRN Reason Stop Dose Admin Aspirin 324 mg 03/28/21 04:14 03/28/21 04:27 Aspirin 81 Mg Tab.Chew PO 03/28/21 04:15 324 mg ONETIME ONE Administration Iopamidol 75 ml 03/28/21 05:51 03/28/21 05:52 Iopamidol 755 Mg/Ml 500 Ml Multipack Bottle IVPUSH 03/28/21 05:52 75 ml ONETIME STA Administration Ondansetron HCl 4 mg 03/28/21 04:22 03/28/21 04:27 Ondansetron 4 Mg Tab.Dis PO 03/28/21 04:23 4 mg ONETIME ONE Administration Departure - Departure Time of Disposition: 07:30 Condition: Good Sepsis Event Note (ED) - Focused Exam Vital Signs: Vital Signs Temp Pulse Resp BP Pulse Ox 03/28/21 07:04 36.2 C 54 L 18 124/74 97 03/28/21 06:41 50 L 134/72 98 03/28/21 06:11 53 L 18 131/77 96 03/28/21 05:13 50 L 96 03/28/21 04:19 35.9 C L 62 175/75 H 93 L
[2021-03-28] MEDS ORDERED: Ondansetron 4 MG Tab.DIS PO ONE (04:22)
[2021-03-28 04:40] LABS: BLOOD UREA NITROGEN,BUN 15 mg/dL (7.0-18.0); CHLORIDE,CL 104 mmol/L (98-107); GLUCOSE RANDOM 119 mg/dL (74-106); POTASSIUM,K 4.1 mmol/L (3.5-5.1); SODIUM,NA 141 mmol/L (136-145)
--- NOTE | 2021-03-28 05:15 | CR ---
INDICATION: Chest pain. TECHNIQUE: Chest 1 view. COMPARISON: 11 October 2020 FINDINGS: Cardiovascular and mediastinum: Heart size and vasculature are normal in caliber and appearance. Mediastinum is within normal limits. Lungs and pleural space: Lungs are clear. No sign of infiltrate or mass. No sign of pleural effusion. No pneumothorax. Bones and soft tissues: No significant findings. Redemonstrated thin metal coil projecting lateral inferior left base likely in the breast. IMPRESSION: Unremarkable chest. Dictated by Barber Chen MD @ 03/28/2021 5:13:[address] Barber Chen @ Mar 28 2021 5:13AM
[2021-03-28] MEDS ORDERED: Iopamidol 755 MG/ML 500 ML Multipack Bottle IVPUSH STA (05:51)
--- NOTE | 2021-03-28 06:46 | CT ---
INDICATION: Chest pain. Elevated D-dimer. TECHNIQUE: CT chest PE was acquired with 75 cc Isovue 370 IV contrast. COMPARISON: None. FINDINGS: Heart and vasculature: Contrast opacification of the pulmonary arterial tree is adequate. No sign of pulmonary embolism. Heart size is normal. Thoracic aorta and pulmonary artery are normal in caliber. Lungs and pleural: No suspicious nodules or infiltrates. No pleural effusions, pleural thickening, or pneumothorax. Lymph nodes/mediastinum: No mediastinal, hilar, or axillary adenopathy. Thyroid gland is normal. Chest wall: No masses. Upper abdomen: Normal. Bones: Unremarkable for age. IMPRESSION: Negative CT of the chest. No pulmonary embolism in the lungs are clear. Please note that all CT scans at this facility use dose modulation, iterative reconstruction, and/or weight-based dosing when appropriate to reduce radiation dose to as low as reasonably achievable. Dictated by Burton Scott MD @ 03/28/2021 6:44:[address] Burton Scott @ Mar 28 2021 6:44AM
[2021-03-28 07:38] VITALS: BP 119/69; PULSE 49
== END 2021-03-28 07:41 | disposition home or self-care (01) ==
LOC: MW.ED 04:04
DX: R07.89 Other chest pain (principal); J44.9 Chronic obstructive pulmonary disease, unspecified; E78.00 Pure hypercholesterolemia, unspecified; I10 Essential (primary) hypertension; K21.9 Gastro-esophageal reflux disease without esophagitis; Z88.6 Allergy status to analgesic agent; Z88.1 Allergy status to other antibiotic agents; Z88.7 Allergy status to serum and vaccine; Z91.040 Latex allergy status; Z88.5 Allergy status to narcotic agent; Z88.8 Allergy status to other drugs, medicaments and biological substances; Z91.013 Allergy to seafood; Z79.899 Other long term (current) drug therapy
CPT/HCPCS: 36415; 71045; 71275; 80053; 84484; 85025; 85379; 93005; 99285; A9270; Q9967; 93010; 99284

== ENCOUNTER 2021-04-09 11:18 | Emergency (ER) | payer BC ==
[2021-04-09 11:38] VITALS: BP 146/86; PULSE 69
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
== END 2021-04-09 12:03 | disposition home or self-care (01) ==
LOC: MW.ED 11:18
DX: J45.901 Unspecified asthma with (acute) exacerbation (principal); E78.00 Pure hypercholesterolemia, unspecified; I10 Essential (primary) hypertension; E66.9 Obesity, unspecified; Z68.30 Body mass index [BMI] 30.0-30.9, adult; Z88.0 Allergy status to penicillin; Z88.1 Allergy status to other antibiotic agents; Z88.6 Allergy status to analgesic agent; Z88.7 Allergy status to serum and vaccine; Z91.040 Latex allergy status; Z88.8 Allergy status to other drugs, medicaments and biological substances
CPT/HCPCS: 99283; 99284

== ENCOUNTER 2021-06-06 11:28 | Emergency (ER) | payer BC ==
[2021-06-06] MEDS ORDERED: Sodium Chloride 0.9% 1,000 ML IV ONE (13:45)
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
[2021-06-06 14:59] LABS: BLOOD UREA NITROGEN,BUN 15 mg/dL (7.0-18.0); CARBON DIOXIDE,CO2 31.7 mmol/L (21.0-32.0); CHLORIDE,CL 104 mmol/L (98-107); GLUCOSE RANDOM 93 mg/dL (74-106); LIPASE 98 U/L (73-393); SODIUM,NA 139 mmol/L (136-145)
--- NOTE | 2021-06-06 15:58 | CT ---
Indication: Right flank pain Technique: Volumetric multidetector CT images of the abdomen and pelvis were without the administration of intravenous contrast. Comparison: None available. Findings: There are tree-in-bud opacities within the left lung base which may represent sequela of atypical infiltrate. The right lung base is clear. The liver is normal in attenuation without intrahepatic biliary ductal dilatation. There is prior cholecystectomy. There is no significant common biliary ductal dilatation or abrupt cut off. The spleen is normal in attenuation and size. The stomach and duodenum are grossly unremarkable. There is mild to moderate pancreatic atrophy and fatty infiltration of the head of the pancreas. The adrenal glands are unremarkable. There is nonspecific bilateral perinephric stranding with likely cystic changes. There is no evidence of hydronephrosis or distal radiopaque calculus. There is a moderate amount of stool seen throughout the colon with minimal distal colonic diverticulosis. There is no evidence of diverticulitis. The appendix is unremarkable. There is no significant mesenteric, retroperitoneal, or pelvic sidewall lymph nodes. The aorta is nonaneurysmal. There is no significant atherosclerotic disease appreciated. There is prior hysterectomy. The bladder is somewhat decompressed. There is no free fluid or free air. There is mild diastasis of the rectus musculature. The lumbar vertebral body heights are grossly maintained with minimal endplate Schmorl`s defects. There is [id number] multilevel degenerative disc disease. There is moderate facet arthrosis. Impression: Nonspecific bilateral perinephric stranding with likely cystic changes of the right kidney. No evidence of radiopaque calculus or distal obstructive uropathy. Normal appendix. Moderate stool seen throughout the colon without evidence of overt inflammatory changes. Prior cholecystectomy and hysterectomy. Please note that all CT scans at this facility use dose modulation, iterative reconstruction, and/or weight-based dosing when appropriate to reduce radiation dose to as low as reasonably achievable. Dictated by Demario Gutiérrez MD @ 06/06/2021 3:57:[address] Demario Gutiérrez @ Jun 06 2021 3:57PM
[2021-06-06 19:28] VITALS: BP 158/79; PULSE 62
== END 2021-06-06 16:30 | disposition home or self-care (01) ==
LOC: MW.ED 11:28
DX: K59.00 Constipation, unspecified (principal); M54.6 Pain in thoracic spine; E78.00 Pure hypercholesterolemia, unspecified; I10 Essential (primary) hypertension; J45.909 Unspecified asthma, uncomplicated; K21.9 Gastro-esophageal reflux disease without esophagitis; E66.9 Obesity, unspecified; Z68.26 Body mass index [BMI] 26.0-26.9, adult; Z88.8 Allergy status to other drugs, medicaments and biological substances; Z88.1 Allergy status to other antibiotic agents; Z88.7 Allergy status to serum and vaccine; Z91.040 Latex allergy status; Z88.5 Allergy status to narcotic agent; Z88.0 Allergy status to penicillin; Z91.013 Allergy to seafood; Z88.6 Allergy status to analgesic agent; Z79.899 Other long term (current) drug therapy
CPT/HCPCS: 36415; 74176; 74176-26; 80053; 81001; 83690; 85025; 99284-25

== ENCOUNTER 2022-07-08 04:32 | Emergency (ER) | payer BC ==
[2022-07-08 04:54] VITALS: BP 147/79; PULSE 58
[2022-07-08] MEDS ORDERED: Clindamycin HCl 150 MG Cap PO ONE (04:56)
== END 2022-07-08 05:11 | disposition home or self-care (01) ==
LOC: MW.ED 04:32
DX: L03.116 Cellulitis of left lower limb (principal); E78.00 Pure hypercholesterolemia, unspecified; I10 Essential (primary) hypertension; E66.9 Obesity, unspecified; Z68.41 Body mass index [BMI] 40.0-44.9, adult; Z88.5 Allergy status to narcotic agent; Z88.0 Allergy status to penicillin; Z88.7 Allergy status to serum and vaccine; Z91.040 Latex allergy status; Z88.1 Allergy status to other antibiotic agents; Z91.013 Allergy to seafood; Z79.899 Other long term (current) drug therapy
CPT/HCPCS: 99283; A9270

== ENCOUNTER 2022-08-25 19:05 | Emergency (ER) | payer BC ==
[2022-08-25 20:22] LABS: CORONAVIRUS COVID-19 NAA NEGATIVE (NEGATIVE); INFLUENZA A NAA NEGATIVE (NEGATIVE); INFLUENZA B NAA NEGATIVE (NEGATIVE)
[2022-08-25 20:47] VITALS: BP 145/78; PULSE 97
== END 2022-08-25 20:53 | disposition home or self-care (01) ==
LOC: MW.ED 19:05
DX: B34.9 Viral infection, unspecified (principal); I10 Essential (primary) hypertension; K21.9 Gastro-esophageal reflux disease without esophagitis; E66.9 Obesity, unspecified; Z68.41 Body mass index [BMI] 40.0-44.9, adult; Z88.8 Allergy status to other drugs, medicaments and biological substances; Z88.0 Allergy status to penicillin; Z88.7 Allergy status to serum and vaccine; Z88.6 Allergy status to analgesic agent; Z91.013 Allergy to seafood; Z91.040 Latex allergy status; Z79.899 Other long term (current) drug therapy; Z20.822 Contact with and (suspected) exposure to COVID-19
CPT/HCPCS: 0240U; 87651; 99284; 99283

== ENCOUNTER 2023-09-17 13:52 | Emergency (ER) | payer BC, OTHER ==
[2023-09-17 15:41] VITALS: BP 154/73; PULSE 52
== END 2023-09-17 15:41 | disposition home or self-care (01) ==
LOC: MW.ED 13:52
DX: J45.901 Unspecified asthma with (acute) exacerbation (principal); I10 Essential (primary) hypertension; E66.9 Obesity, unspecified; Z88.0 Allergy status to penicillin; Z88.5 Allergy status to narcotic agent; Z91.013 Allergy to seafood; Z91.040 Latex allergy status; Z88.1 Allergy status to other antibiotic agents; Z88.8 Allergy status to other drugs, medicaments and biological substances; Z88.6 Allergy status to analgesic agent; Z88.7 Allergy status to serum and vaccine
CPT/HCPCS: 71045; 71045-26; 99283; 99284

== ENCOUNTER 2023-09-26 01:14 | Inpatient (IN) | payer BC ==
[2023-09-26] MEDS ORDERED: Sodium Chloride 0.9% 10 ML Syringe FLUSH PRN (01:25)
[2023-09-26] MEDS ORDERED: Cefepime 2 GM in Sodium Chloride 0.9% 50 ML IV STA (01:25)
[2023-09-26] MEDS ORDERED: Sodium Chloride 0.9% 1,000 ML IV ONE ×2 (01:25→02:41)
[2023-09-26] MEDS ORDERED: Ondansetron 4 MG/2 ML SDV IVPUSH ONE (01:25)
[2023-09-26] MEDS ORDERED: Albuterol/Ipratropium 3.0-0.5 MG/3 ML Neb Soln NEB ONE (01:25)
[2023-09-26] MEDS ORDERED: Acetaminophen 500 MG Tab PO ONE (01:25)
[2023-09-26] MEDS ORDERED: Albuterol 0.083% 2.5 MG/3 ML Neb Soln NEB ONE (01:25)
[2023-09-26] MEDS ORDERED: Dexamethasone 10 MG/ML SDV IVPUSH ONE (01:25)
[2023-09-26] MEDS ORDERED: Sodium Chloride 0.9% 2.5 ML Syringe FLUSH PRN (01:25)
[2023-09-26 01:58] LABS: BASOPHILS ABSOLUTE AUTO 0.05 K/uL (0.00-0.20); BASOPHILS PERCENT AUTO 0.4 % (0.0-1.0); EOSINOPHILS ABSOLUTE AUTO 0.01 K/uL (0.00-0.45); EOSINOPHILS PERCENT AUTO 0.1 % (0.0-6.0); HEMATOCRIT 39.2 % (37.0-47.0); IMMATURE GRAN ABSOLUTE AUTO 0.03 K/uL (0.00-0.05); IMMATURE GRAN PERCENT AUTO 0.2 % (0.0-0.4); LYMPHOCYTES ABSOLUTE AUTO 1.01 K/uL (1.00-4.80); LYMPHOCYTES PERCENT AUTO 7.6 % (24.0-44.0); MEAN CORPUSCULAR HGB CONC 33.2 g/dL (32.0-36.0); MEAN CORPUSCULAR VOLUME 90.3 fL (83.0-99.0); MEAN PLATELET VOLUME 9.8 fL (9.4-12.3); MONOCYTES ABSOLUTE AUTO 0.81 K/uL (0.00-0.80); MONOCYTES PERCENT AUTO 6.1 % (0.0-8.0); NEUTROPHILS ABSOLUTE AUTO 11.33 K/uL (1.80-7.70); NEUTROPHILS PERCENT AUTO 85.6 % (41.0-71.0); PLATELET COUNT,PLT 299 K/uL (150-400); RED BLOOD CELL COUNT 4.34 M/uL (4.10-5.30); WHITE BLOOD CELL COUNT,WBC 13.24 K/uL (3.9-11.3)
[2023-09-26 02:25] LABS: A/G RATIO 0.9 (0.9-1.6); ALANINE AMINOTRANSFERASE,ALT 48 IU/L (14-63); ALBUMIN 3.4 g/dL (3.4-5.0); ALKALINE PHOSPHATASE 207 U/L (46-116); ASPARTATE AMNIOTRANSFERASE,AST 25 IU/L (15-37); BILIRUBIN TOTAL 0.4 mg/dL (0.2-1.0); BLOOD UREA NITROGEN,BUN 8 mg/dL (7.0-18.0); CALCIUM 8.7 mg/dL (8.5-10.1); CARBON DIOXIDE,CO2 25.8 mmol/L (21.0-32.0); CHLORIDE,CL 98 mmol/L (98-107); CREATININE 1.4 mg/dL (0.6-1.0); GLUCOSE RANDOM 212 mg/dL (74-106); POTASSIUM,K 3.7 mmol/L (3.5-5.1); PROTEIN TOTAL,TP 7.3 g/dL (6.4-8.2); SODIUM,NA 136 mmol/L (136-145)
[2023-09-26 02:28] LABS: LACTIC ACID 4.2 mmol/L (0.4-2.0)
[2023-09-26 02:40] LABS: ESTIMATED GFR 44 mL/min (>60)
[2023-09-26] MEDS ORDERED: metroNIDAZOLE/Normal Saline 500 MG in Premix Bag 1 BAG IV STA ×2 (02:41→03:00)
[2023-09-26] MEDS ORDERED: Iopamidol 755 Mg/ML 100 ML Bottle IVPUSH ONE (03:01)
[2023-09-26 03:53] LABS: CORONAVIRUS COVID-19 NAA POSITIVE (NEGATIVE); INFLUENZA A NAA NEGATIVE (NEGATIVE); INFLUENZA B NAA NEGATIVE (NEGATIVE)
[2023-09-26 04:59] LABS: APPEARANCE,URINE CLEAR; BILIRUBIN,URINE NEGATIVE (NEGATIVE); COLOR,URINE YELLOW; GLUCOSE,URINE NEGATIVE (NEGATIVE); KETONES,URINE NEGATIVE (NEGATIVE); LEUKOCYTE ESTERASE,URINE NEGATIVE (NEGATIVE); NITRITE,URINE NEGATIVE (NEGATIVE); OCCULT BLOOD,URINE NEGATIVE (NEGATIVE); PH,URINE 5.5 (5.0-8.0); PROTEIN,URINE NEGATIVE (NEGATIVE); UROBILINOGEN,URINE 0.2 EU/dL (<2.0)
[2023-09-26] MEDS ORDERED: Ondansetron 4 MG/2 ML SDV IVPUSH PRN (07:59)
[2023-09-26] MEDS ORDERED: Polyethylene Glycol 3350 Powder 17 GM Packet PO PRN (07:59)
[2023-09-26] MEDS ORDERED: Enoxaparin 40 MG/0.4 ML Syringe SUBCUT SCH (08:00)
[2023-09-26] MEDS ORDERED: Lactated Ringers 1,000 ML IV SCH (08:00)
[2023-09-26] MEDS ORDERED: Albuterol/Ipratropium 3.0-0.5 MG/3 ML Neb Soln NEB SCH (10:00)
[2023-09-26] MEDS: Acetaminophen 325 MG Tab PO PRN ×2 (11:48→21:23)
[2023-09-26] MEDS ORDERED: Sodium Chloride 0.65% Nasal Spray 45 ML Bottle NAS PRN (11:55)
[2023-09-26] MEDS: Albuterol/Ipratropium 3.0-0.5 MG/3 ML Neb Soln NEB SCH ×3 (17:15→23:15)
[2023-09-26] MEDS: Losartan 50 MG Tab PO SCH (18:44)
[2023-09-26] MEDS: Enoxaparin 40 MG/0.4 ML Syringe SUBCUT SCH (21:14)
[2023-09-26] MEDS: Metoprolol Tartrate 50 MG Tab PO SCH (21:15)
[2023-09-26] MEDS ORDERED: VANCOmycin 2 GM/400 ML 2 GM in Premix Bag 1 BAG IV ONE (22:00)
[2023-09-26] MEDS ORDERED: Piperacillin/Tazobactam 4.5 GM in Sodium Chloride 0.9% 100 ML IV SCH (23:00)
[2023-09-26] MEDS: Lactated Ringers 1,000 ML IV SCH (23:15)
[2023-09-27] MEDS: Acetaminophen 325 MG Tab PO PRN ×2 (03:35→10:50)
[2023-09-27] MEDS ORDERED: diphenhydrAMINE 50 MG/ML SDV IVPUSH PRN (03:55)
[2023-09-27] MEDS: Piperacillin/Tazobactam 4.5 GM in Sodium Chloride 0.9% 100 ML IV SCH ×4 (05:19→21:21)
[2023-09-27] MEDS: Albuterol/Ipratropium 3.0-0.5 MG/3 ML Neb Soln NEB SCH ×3 (05:20→21:22)
[2023-09-27 06:39] LABS: BASOPHILS ABSOLUTE AUTO 0.02 K/uL (0.00-0.20); BASOPHILS PERCENT AUTO 0.2 % (0.0-1.0); HEMATOCRIT 35.5 % (37.0-47.0); HEMOGLOBIN 11.9 g/dL (12.0-16.0); IMMATURE GRAN ABSOLUTE AUTO 0.07 K/uL (0.00-0.05); IMMATURE GRAN PERCENT AUTO 0.5 % (0.0-0.4); LYMPHOCYTES ABSOLUTE AUTO 2.56 K/uL (1.00-4.80); LYMPHOCYTES PERCENT AUTO 20.1 % (24.0-44.0); MEAN CORPUSCULAR HEMOGLOBIN 30.7 pg (28.0-32.0); MEAN CORPUSCULAR HGB CONC 33.5 g/dL (32.0-36.0); MEAN CORPUSCULAR VOLUME 91.5 fL (83.0-99.0); MONOCYTES ABSOLUTE AUTO 1.01 K/uL (0.00-0.80); MONOCYTES PERCENT AUTO 7.9 % (0.0-8.0); NEUTROPHILS ABSOLUTE AUTO 9.07 K/uL (1.80-7.70); NEUTROPHILS PERCENT AUTO 71.3 % (41.0-71.0); PLATELET COUNT,PLT 241 K/uL (150-400); RED BLOOD CELL COUNT 3.88 M/uL (4.10-5.30); WHITE BLOOD CELL COUNT,WBC 12.73 K/uL (3.9-11.3)
[2023-09-27 06:51] LABS: A/G RATIO 0.9 (0.9-1.6); ALBUMIN 2.9 g/dL (3.4-5.0); BILIRUBIN TOTAL 0.2 mg/dL (0.2-1.0); CARBON DIOXIDE,CO2 27.8 mmol/L (21.0-32.0); CREATININE 1.1 mg/dL (0.6-1.0); EST CRCL DRUG DOSING (CG) 50.77 mL/min; POTASSIUM,K 4.6 mmol/L (3.5-5.1); PROTEIN TOTAL,TP 6.3 g/dL (6.4-8.2)
[2023-09-27] MEDS ORDERED: Diclofenac Sodium 50 MG Tab.EC PO PRN (08:46)
[2023-09-27] MEDS: Losartan 50 MG Tab PO SCH (09:52)
[2023-09-27] MEDS: Metoprolol Tartrate 50 MG Tab PO SCH ×2 (09:55→21:37)
[2023-09-27] MEDS: Enoxaparin 40 MG/0.4 ML Syringe SUBCUT SCH ×2 (09:55→21:37)
[2023-09-27] MEDS: Lactated Ringers 1,000 ML IV SCH ×2 (10:48→21:27)
[2023-09-27] MEDS: Sodium Chloride 0.65% Nasal Spray 45 ML Bottle NAS SCH ×3 (10:50→21:28)
[2023-09-27] MEDS: RITONAVIR PO SCH (21:30)
[2023-09-27] MEDS: NIRMATRELVIR PO SCH (21:30)
[2023-09-27] MEDS ORDERED: VANCOmycin 1.75 GM/350 ML 1.75 GM in Premix Bag 1 BAG IV SCH (22:00)
[2023-09-28] MEDS: Piperacillin/Tazobactam 4.5 GM in Sodium Chloride 0.9% 100 ML IV SCH ×2 (04:46→09:13)
[2023-09-28] MEDS: Sodium Chloride 0.65% Nasal Spray 45 ML Bottle NAS SCH ×2 (04:48→09:20)
[2023-09-28] MEDS: Albuterol/Ipratropium 3.0-0.5 MG/3 ML Neb Soln NEB SCH ×3 (04:56→05:00)
[2023-09-28 08:52] LABS: BASOPHILS ABSOLUTE AUTO 0.05 K/uL (0.00-0.20); BASOPHILS PERCENT AUTO 0.6 % (0.0-1.0); EOSINOPHILS ABSOLUTE AUTO 0.22 K/uL (0.00-0.45); EOSINOPHILS PERCENT AUTO 2.4 % (0.0-6.0); HEMATOCRIT 36.7 % (37.0-47.0); HEMOGLOBIN 11.9 g/dL (12.0-16.0); IMMATURE GRAN ABSOLUTE AUTO 0.04 K/uL (0.00-0.05); IMMATURE GRAN PERCENT AUTO 0.4 % (0.0-0.4); LYMPHOCYTES ABSOLUTE AUTO 3.27 K/uL (1.00-4.80); LYMPHOCYTES PERCENT AUTO 36.1 % (24.0-44.0); MEAN CORPUSCULAR HEMOGLOBIN 29.5 pg (28.0-32.0); MEAN CORPUSCULAR HGB CONC 32.4 g/dL (32.0-36.0); MEAN CORPUSCULAR VOLUME 91.1 fL (83.0-99.0); MEAN PLATELET VOLUME 9.8 fL (9.4-12.3); MONOCYTES ABSOLUTE AUTO 0.71 K/uL (0.00-0.80); MONOCYTES PERCENT AUTO 7.8 % (0.0-8.0); NEUTROPHILS ABSOLUTE AUTO 4.78 K/uL (1.80-7.70); NEUTROPHILS PERCENT AUTO 52.7 % (41.0-71.0); PLATELET COUNT,PLT 254 K/uL (150-400); RED BLOOD CELL COUNT 4.03 M/uL (4.10-5.30); WHITE BLOOD CELL COUNT,WBC 9.07 K/uL (3.9-11.3)
[2023-09-28] MEDS: Enoxaparin 40 MG/0.4 ML Syringe SUBCUT SCH (09:04)
[2023-09-28] MEDS: Metoprolol Tartrate 50 MG Tab PO SCH (09:11)
[2023-09-28] MEDS: NIRMATRELVIR PO SCH (09:11)
[2023-09-28] MEDS: Losartan 50 MG Tab PO SCH (09:11)
[2023-09-28] MEDS: RITONAVIR PO SCH (09:11)
[2023-09-28 09:14] VITALS: BP 147/69; PULSE 59
[2023-09-28 09:26] LABS: A/G RATIO 0.8 (0.9-1.6); ALBUMIN 2.9 g/dL (3.4-5.0); BILIRUBIN TOTAL 0.3 mg/dL (0.2-1.0); CALCIUM 8.8 mg/dL (8.5-10.1); CARBON DIOXIDE,CO2 30.1 mmol/L (21.0-32.0); CREATININE 1.1 mg/dL (0.6-1.0); EST CRCL DRUG DOSING (CG) 50.77 mL/min; POTASSIUM,K 3.9 mmol/L (3.5-5.1); PROTEIN TOTAL,TP 6.6 g/dL (6.4-8.2)
== END 2023-09-28 12:45 | disposition home or self-care (01) | DRG 137 ==
LOC: MW.ED 01:14 → MW.MS 04:06 → OBSVTOIN 09-27 21:08
PROVIDERS: ADMIT Family Medicine; ATTEND Family Medicine
DX: U07.1 COVID-19 (principal); J96.01 Acute respiratory failure with hypoxia; J45.901 Unspecified asthma with (acute) exacerbation; Z68.42 Body mass index [BMI] 45.0-49.9, adult; C50.919 Malignant neoplasm of unspecified site of unspecified female breast; E78.00 Pure hypercholesterolemia, unspecified; I10 Essential (primary) hypertension; K21.9 Gastro-esophageal reflux disease without esophagitis; E66.9 Obesity, unspecified; Z90.49 Acquired absence of other specified parts of digestive tract; Z90.710 Acquired absence of both cervix and uterus; Z90.721 Acquired absence of ovaries, unilateral; Z79.899 Other long term (current) drug therapy; Z99.81 Dependence on supplemental oxygen; Z79.51 Long term (current) use of inhaled steroids; Z88.6 Allergy status to analgesic agent; Z88.0 Allergy status to penicillin; Z88.7 Allergy status to serum and vaccine; Z88.8 Allergy status to other drugs, medicaments and biological substances; Z88.1 Allergy status to other antibiotic agents; Z91.041 Radiographic dye allergy status; Z88.5 Allergy status to narcotic agent; Z91.013 Allergy to seafood; Z98.890 Other specified postprocedural states
CPT/HCPCS: 0240U; 36415; 71046; 71046-26; 71275; 71275-26; 74177; 74177-26; 80053; 80202; 81003; 83605; 83690; 83880; 84484; 85025; 87040; 93005; 93010; 94640; 96361; 96365; 96366; 96367; 96375; 99285-25; 99291; A9270-GY; G0378; J0692; J1100; J1200; J2405; J2543; J3370; J3490; J7030; J7120; J7620-GY; Q9967

== ENCOUNTER 2024-04-01 12:34 | Emergency (ER) | payer BC ==
[2024-04-01] MEDS: Albuterol/Ipratropium 3.0-0.5 MG/3 ML Neb Soln NEB STA (12:51)
[2024-04-01 14:04] VITALS: BP 146/58; PULSE 66
== END 2024-04-01 14:02 | disposition home or self-care (01) ==
LOC: MW.ED 12:34
DX: J45.901 Unspecified asthma with (acute) exacerbation (principal); E78.00 Pure hypercholesterolemia, unspecified; I10 Essential (primary) hypertension; K21.9 Gastro-esophageal reflux disease without esophagitis; Z75.8 Other problems related to medical facilities and other health care; Z88.6 Allergy status to analgesic agent; Z88.8 Allergy status to other drugs, medicaments and biological substances; Z91.040 Latex allergy status; Z88.0 Allergy status to penicillin; Z91.013 Allergy to seafood; Z88.5 Allergy status to narcotic agent; Z88.1 Allergy status to other antibiotic agents; Z79.899 Other long term (current) drug therapy; Z79.51 Long term (current) use of inhaled steroids; Z86.16 Personal history of COVID-19; Z86.19 Personal history of other infectious and parasitic diseases; Z90.49 Acquired absence of other specified parts of digestive tract
CPT/HCPCS: 93005; 93010; 94640; 99283; 99285; J7620-GY

== ENCOUNTER 2024-04-09 23:33 | Emergency (ER) | payer BC ==
[2024-04-09 23:42] VITALS: PULSE 70
[2024-04-09] MEDS ORDERED: Sodium Chloride 0.9% 10 ML Syringe FLUSH PRN (23:45)
[2024-04-09] MEDS ORDERED: Sodium Chloride 0.9% 2.5 ML Syringe FLUSH PRN (23:45)
[2024-04-10 00:46] LABS: BASOPHILS ABSOLUTE AUTO 0.06 K/uL (0.00-0.20); BASOPHILS PERCENT AUTO 0.5 % (0.0-1.0); EOSINOPHILS ABSOLUTE AUTO 0.19 K/uL (0.00-0.45); EOSINOPHILS PERCENT AUTO 1.6 % (0.0-6.0); HEMOGLOBIN 12.7 g/dL (12.0-16.0); IMMATURE GRAN ABSOLUTE AUTO 0.03 K/uL (0.00-0.05); IMMATURE GRAN PERCENT AUTO 0.2 % (0.0-0.4); LYMPHOCYTES ABSOLUTE AUTO 3.05 K/uL (1.00-4.80); LYMPHOCYTES PERCENT AUTO 25.3 % (24.0-44.0); MEAN CORPUSCULAR HEMOGLOBIN 30.3 pg (28.0-32.0); MEAN CORPUSCULAR HGB CONC 32.6 g/dL (32.0-36.0); MEAN CORPUSCULAR VOLUME 93.1 fL (83.0-99.0); MEAN PLATELET VOLUME 9.8 fL (9.4-12.3); MONOCYTES ABSOLUTE AUTO 0.73 K/uL (0.00-0.80); MONOCYTES PERCENT AUTO 6.1 % (0.0-8.0); NEUTROPHILS PERCENT AUTO 66.3 % (41.0-71.0); PLATELET COUNT,PLT 263 K/uL (150-400); RED BLOOD CELL COUNT 4.19 M/uL (4.10-5.30); WHITE BLOOD CELL COUNT,WBC 12.06 K/uL (3.9-11.3)
[2024-04-10 01:06] VITALS: BP 154/79
[2024-04-10 01:12] LABS: A/G RATIO 0.8 (0.9-1.6); ALBUMIN 3.3 g/dL (3.4-5.0); BILIRUBIN TOTAL 0.2 mg/dL (0.2-1.0); CALCIUM 8.9 mg/dL (8.5-10.1); CARBON DIOXIDE,CO2 30.2 mmol/L (21.0-32.0); EST CRCL DRUG DOSING (CG) 55.18 mL/min; POTASSIUM,K 4.3 mmol/L (3.5-5.1); PROTEIN TOTAL,TP 7.3 g/dL (6.4-8.2)
== END 2024-04-10 01:58 | disposition left against medical advice (07) ==
LOC: MW.ED 23:33
DX: R07.89 Other chest pain (principal); I10 Essential (primary) hypertension; J45.909 Unspecified asthma, uncomplicated; K21.9 Gastro-esophageal reflux disease without esophagitis; E78.00 Pure hypercholesterolemia, unspecified; E66.9 Obesity, unspecified; Z75.8 Other problems related to medical facilities and other health care; Z88.0 Allergy status to penicillin; Z88.1 Allergy status to other antibiotic agents; Z88.5 Allergy status to narcotic agent; Z88.7 Allergy status to serum and vaccine; Z88.8 Allergy status to other drugs, medicaments and biological substances; Z91.013 Allergy to seafood; Z91.040 Latex allergy status; Z79.899 Other long term (current) drug therapy; Z68.42 Body mass index [BMI] 45.0-49.9, adult; Z90.49 Acquired absence of other specified parts of digestive tract; Z90.710 Acquired absence of both cervix and uterus
CPT/HCPCS: 36415; 71045; 71045-26; 80053; 84484; 85025; 85379; 93005; 93010; 99282; 99285